=== PATIENT | male | born 1980 | race Caucasian/White ===

== ENCOUNTER 2021-10-07 12:18 | Inpatient (IN) | payer OTHER ==
[2021-10-07] VITALS (34 sets, daily range): BP systolic 99–133; BP diastolic 55–92
[~2021-10-07] VITALS: Ht 188 cm; Wt 128.9 kg
[2021-10-07] MEDS ORDERED: REFRIGERATOR IV KEYS XX PRN (13:20)
[2021-10-07] MEDS: propofoL 1,000 MG in IV 1 EA IV SCH ×6 (14:15→23:00)
[2021-10-07] MEDS ORDERED: MIDAZOLAM INJ 2MG/2ML VIAL (J2250 PER 1MG) As Ordered ONE (14:19)
[2021-10-07] MEDS ORDERED: PROPOFOL 1,000 MG/100 ML VIAL As Ordered ONE (14:19)
[2021-10-07] MEDS ORDERED: VECURONIUM BROMIDE 10MG VIAL As Ordered ONE (14:29)
[2021-10-07] MEDS: MIDAZOLAM INJ 2MG/2ML VIAL (J2250 PER 1MG) IV PRN (14:30)
[2021-10-07] MEDS ORDERED: MORPHINE 4 MG/ML 1ML VIAL/SYRINGE (J2270) As Ordered ONE (14:38)
[2021-10-07] MEDS ORDERED: MIDAZOLAM INJ 2MG/2ML VIAL (J2250 PER 1MG) IV STA (14:38)
[2021-10-07] MEDS ORDERED: MIDAZOLAM 5MG/ML 1ML VIAL (J2250 PER 1MG) As Ordered ONE (14:39)
[2021-10-07] MEDS ORDERED: MORPHINE 4 MG/ML 1ML VIAL/SYRINGE (J2270) IV ONE (14:40)
[2021-10-07] MEDS: fentaNYL CITRATE 1,000 MCG in NS 80 ML IV SCH (15:00)
[2021-10-07] MEDS: MIDAZOLAM HCL 100 MG in D5W 80 ML IV SCH (15:00)
[2021-10-07] MEDS ORDERED: VECURONIUM BROMIDE 10MG VIAL IV STA (15:07)
[2021-10-07 15:22] LABS: ABG BASE EXCESS -4.9 (-2.0-2.0); ABG HCO3 21.2 MEQ/L (22.0-26.0); ABG O2 SATURATION 93.5 % (95.0-99.0); ABG PARTIAL PRESSURE CO2 43.4 mmHg (35.0-45.0); ABG PARTIAL PRESSURE O2 76.9 mmHg (75.0-100.0); ABG STANDARD HCO3 20.3 MEQ/L (22.0-26.0); ABG TOTAL CO2 22.5 MEQ/L (22.0-29.0); ABG pH (ARTERIAL) 7.307 UNITS (7.350-7.450)
[2021-10-07] MEDS ORDERED: HEPARIN SOD (PORCINE) 5000UNITS/ML 1ML VIAL/SYRINGE IV ONE (15:30)
[2021-10-07] MEDS ORDERED: HEPARIN DRIP 25,000 UNITS in IV 1 EA IV SCH (15:30)
[2021-10-07 15:35] LABS: HEMATOCRIT 36.8 % (42.0-52.0); HEMOGLOBIN 12.6 g/dl (13.5-17.5); MEAN CORPUSCULAR HEMOGLOBIN 29.6 pg (27.0-33.0); MEAN CORPUSCULAR HGB CONC 34.2 g/dl (32.0-36.5); MEAN CORPUSCULAR VOLUME 86.4 fl (80.0-96.0); PLATELET COUNT, AUTOMATED 237 10^3/uL (150-450); RED BLOOD COUNT 4.26 10^6/uL (4.30-6.10); WHITE BLOOD COUNT 10.2 10^3/uL (4.0-10.0)
[2021-10-07] MEDS ORDERED: LEVO150T7 PO (15:37)
[2021-10-07] MEDS ORDERED: NEUR300C PO (15:37)
[2021-10-07] MEDS ORDERED: METF-723 PO (15:37)
[2021-10-07] MEDS ORDERED: OMEP40CA5 PO (15:37)
[2021-10-07] MEDS ORDERED: LOSA50TA28 PO (15:37)
[2021-10-07] MEDS ORDERED: ATOR80TA59 PO (15:37)
[2021-10-07] MEDS ORDERED: TIZA10TA PO (15:37)
[2021-10-07] MEDS ORDERED: FLUC150T PO (15:37)
[2021-10-07] MEDS ORDERED: MICO14CR TOP (15:37)
[2021-10-07] MEDS ORDERED: VASC1CAP2 PO (15:37)
[2021-10-07] MEDS ORDERED: SITA50TAB PO (15:37)
[2021-10-07] MEDS ORDERED: JARD1TAB3 PO (15:37)
[2021-10-07] MEDS ORDERED: FENO145T7 PO (15:37)
[2021-10-07] MEDS: IPRATROPIUM 0.5MG/ALBUTEROL 2.5MG INH SOL UD 3ML (DUONEB) NEB SCH ×2 (15:38→20:47)
[2021-10-07] MEDS ORDERED: [UNRECOGNIZED DRUG - CODE] IV (15:55)
[2021-10-07] MEDS ORDERED: LOVE0.8I SC (15:55)
[2021-10-07] MEDS ORDERED: [UNRECOGNIZED DRUG - CODE] INJ (15:55)
[2021-10-07] MEDS: PANTOPRAZOLE 40MG VIAL (C9113 PER 1) IV SCH (15:57)
[2021-10-07] MEDS: INSULIN REGULAR IN 0.9 % NACL 100 UNIT in IV 1 EA IV SCH ×2 (15:58)
[2021-10-07 16:03] LABS: BILIRUBIN,TOTAL 0.5 MG/DL (0.2-1.0); CALCIUM LEVEL 8.3 MG/DL (8.5-10.1); CREATININE FOR GFR 1.48 MG/DL (0.70-1.30); GLOMERULAR FILTRATION RATE 55.8 (>60); PHOSPHORUS LEVEL 3.9 MG/DL (2.5-4.9); POTASSIUM SERUM 4.7 MEQ/L (3.5-5.1); TOTAL PROTEIN 7.1 GM/DL (6.4-8.2)
[2021-10-07 16:04] LABS: MAGNESIUM LEVEL 2.1 MG/DL (1.8-2.4)
[2021-10-07] MEDS ORDERED: [UNRECOGNIZED DRUG - CODE] IV (16:07)
[2021-10-07] MEDS ORDERED: CEFT1INJ5 IV (16:07)
[2021-10-07] MEDS ORDERED: DEXA10SY IVP (16:07)
[2021-10-07] MEDS ORDERED: INSUHUMDS SC (16:10)
[2021-10-07] MEDS ORDERED: PATIENT COMMENT (16:11)
[2021-10-07] MEDS ORDERED: HOME MED LIST COMPLETE! XX SCH (16:15)
[2021-10-07] MEDS ORDERED: dexameTHASONE 20MG/5ML VIAL (J1100 PER 1MG) IV ONE (16:15)
[2021-10-07] MEDS: INSULIN IV RATE CHANGE DOCUMENTATION ML/HR XX SCH ×4 (17:00→23:06)
[2021-10-07] MEDS: CISATRACURIUM 200 MG in NS 480 ML IV SCH (17:05)
[2021-10-07] MEDS: BARICITINIB 2MG TABLET (OLUMIANT) FOR EUA PO SCH (17:06)
[2021-10-07] MEDS: HEPARIN DRIP 25,000 UNITS in IV 1 EA IV SCH (21:01)
[2021-10-07] MEDS: CHLORHEXIDINE GLUCONATE 0.12 % 15ML UDC (PERIDEX ORAL RINSE) MT SCH (21:19)
[2021-10-08] VITALS (46 sets, daily range): BP systolic 105–138; BP diastolic 55–81
[2021-10-08] MEDS: propofoL 1,000 MG in IV 1 EA IV SCH ×7 (01:05→22:58)
[2021-10-08] MEDS: INSULIN REGULAR IN 0.9 % NACL 100 UNIT in IV 1 EA IV SCH ×16 (01:10→21:54)
[2021-10-08] MEDS: INSULIN IV RATE CHANGE DOCUMENTATION ML/HR XX SCH ×5 (03:19→20:30)
[2021-10-08] MEDS: CISATRACURIUM 200 MG in NS 480 ML IV SCH ×2 (04:40→20:45)
[2021-10-08] MEDS: LEVOTHYROXINE 150MCG TABLET (0.15MG) NG SCH (04:58)
[2021-10-08] MEDS: dexameTHASONE 4 MG/ML 1ML VIAL (J1100 PER 1MG) IV SCH ×2 (04:59→18:12)
[2021-10-08] MEDS: fentaNYL CITRATE 1,000 MCG in NS 80 ML IV SCH ×3 (05:18→19:36)
[2021-10-08 05:20] LABS: ABG BASE EXCESS -1.7 (-2.0-2.0); ABG O2 SATURATION 99.2 % (95.0-99.0); ABG PARTIAL PRESSURE CO2 44.2 mmHg (35.0-45.0); ABG PARTIAL PRESSURE O2 210.4 mmHg (75.0-100.0); ABG STANDARD HCO3 23.1 MEQ/L (22.0-26.0); ABG TOTAL CO2 25.3 MEQ/L (22.0-29.0); ABG pH (ARTERIAL) 7.352 UNITS (7.350-7.450)
[2021-10-08 05:45] LABS: BASO % 0.1 % (0.0-1.0); EOS % 0.1 % (0.0-3.0); HEMATOCRIT 37.7 % (42.0-52.0); HEMOGLOBIN 12.6 g/dl (13.5-17.5); LYMPH # 1.4 10^3/uL (1.5-5.0); MEAN CORPUSCULAR HEMOGLOBIN 29.4 pg (27.0-33.0); MEAN CORPUSCULAR HGB CONC 33.4 g/dl (32.0-36.5); MEAN CORPUSCULAR VOLUME 88.1 fl (80.0-96.0); MONO # 0.3 10^3/uL (0.0-0.8); MONO % 3.5 % (2.0-8.0); NEUTROPHILS # 7.1 10^3/uL (1.5-8.5); NEUTROPHILS % 79.5 % (36.0-66.0); PLATELET COUNT, AUTOMATED 288 10^3/uL (150-450); RED BLOOD COUNT 4.28 10^6/uL (4.30-6.10); WHITE BLOOD COUNT 8.9 10^3/uL (4.0-10.0)
[2021-10-08 05:49] LABS: INR 1.09; PROTHROMBIN TIME 14.5 SECONDS (12.7-14.5)
[2021-10-08 05:51] LABS: PARTIAL THROMBOPLASTIN TIME 89.1 SECONDS (25.9-37.0)
[2021-10-08 06:05] LABS: ALT/SGPT 42 U/L (12-78); BILIRUBIN,DIRECT < 0.1 MG/DL (0.0-0.2); BILIRUBIN,TOTAL 0.5 MG/DL (0.2-1.0); BLOOD UREA NITROGEN 20 MG/DL (7-18); CALCIUM LEVEL 8.1 MG/DL (8.5-10.1); CARBON DIOXIDE LEVEL 26 MEQ/L (21-32); CHLORIDE LEVEL 108 MEQ/L (98-107); CREATININE FOR GFR 1.26 MG/DL (0.70-1.30); GLOMERULAR FILTRATION RATE > 60.0 (>60); GLUCOSE, FASTING 196 MG/DL (70-100); POTASSIUM SERUM 4.2 MEQ/L (3.5-5.1); SODIUM LEVEL 144 MEQ/L (136-145); TOTAL PROTEIN 6.6 GM/DL (6.4-8.2)
[2021-10-08] MEDS: IPRATROPIUM 0.5MG/ALBUTEROL 2.5MG INH SOL UD 3ML (DUONEB) NEB SCH ×4 (08:12→20:51)
[2021-10-08] MEDS: CHLORHEXIDINE GLUCONATE 0.12 % 15ML UDC (PERIDEX ORAL RINSE) MT SCH ×2 (09:11→21:08)
[2021-10-08] MEDS: REMDESIVIR 100 MG in NS 250 ML IV SCH (09:12)
[2021-10-08] MEDS: BARICITINIB 2MG TABLET (OLUMIANT) FOR EUA PO SCH (09:12)
[2021-10-08] MEDS: PANTOPRAZOLE 40MG VIAL (C9113 PER 1) IV SCH (09:12)
[2021-10-08] MEDS: SODIUM CHLORIDE 0.9% INJ 10 ML SYR IV SCH (09:13)
[2021-10-08] MEDS: MIDAZOLAM HCL 100 MG in D5W 80 ML IV SCH (11:15)
[2021-10-08] MEDS: HEPARIN DRIP 25,000 UNITS in IV 1 EA IV SCH (13:40)
[2021-10-08] MEDS: MIDAZOLAM INJ 2MG/2ML VIAL (J2250 PER 1MG) IV PRN (17:34)
[2021-10-09] VITALS (44 sets, daily range): BP systolic 111–171; BP diastolic 56–103
[2021-10-09] MEDS: propofoL 1,000 MG in IV 1 EA IV SCH ×7 (01:00→23:07)
[2021-10-09] MEDS ORDERED: PROPOFOL 1,000 MG/100 ML VIAL As Ordered ONE ×2 (01:07→02:57)
[2021-10-09] MEDS ORDERED: INSULIN REGULAR 100UNITS IN 0.9% SODIUM CHLORIDE 100ML IVBAG As Ordered ONE (01:13)
[2021-10-09 05:02] LABS: BASO % 0.1 % (0.0-1.0); HEMOGLOBIN 11.8 g/dl (13.5-17.5); LYMPH # 1.2 10^3/uL (1.5-5.0); LYMPH % 12.2 % (24.0-44.0); MEAN CORPUSCULAR HEMOGLOBIN 29.2 pg (27.0-33.0); MEAN CORPUSCULAR HGB CONC 32.8 g/dl (32.0-36.5); MEAN CORPUSCULAR VOLUME 89.1 fl (80.0-96.0); MONO # 0.7 10^3/uL (0.0-0.8); MONO % 7.1 % (2.0-8.0); NEUTROPHILS # 7.6 10^3/uL (1.5-8.5); NEUTROPHILS % 79.5 % (36.0-66.0); PLATELET COUNT, AUTOMATED 366 10^3/uL (150-450); RED BLOOD COUNT 4.04 10^6/uL (4.30-6.10); WHITE BLOOD COUNT 9.6 10^3/uL (4.0-10.0)
[2021-10-09 05:14] LABS: INR 0.99; PROTHROMBIN TIME 13.5 SECONDS (12.7-14.5)
[2021-10-09 05:15] LABS: PARTIAL THROMBOPLASTIN TIME 48.8 SECONDS (25.9-37.0)
[2021-10-09] MEDS ORDERED: NS 500 ML IV ONE (05:35)
[2021-10-09 05:47] LABS: BLOOD UREA NITROGEN 21 MG/DL (7-18); CARBON DIOXIDE LEVEL 28 MEQ/L (21-32); CHLORIDE LEVEL 115 MEQ/L (98-107); CREATININE FOR GFR 1.26 MG/DL (0.70-1.30); GLOMERULAR FILTRATION RATE > 60.0 (>60); GLUCOSE, FASTING 125 MG/DL (70-100); POTASSIUM SERUM 4.4 MEQ/L (3.5-5.1); SODIUM LEVEL 148 MEQ/L (136-145)
[2021-10-09 05:48] LABS: ALBUMIN 1.8 GM/DL (3.2-5.2); ALT/SGPT 43 U/L (12-78); BILIRUBIN,DIRECT 0.2 MG/DL (0.0-0.2); BILIRUBIN,TOTAL 0.4 MG/DL (0.2-1.0); CALCIUM LEVEL 7.6 MG/DL (8.5-10.1); FERRITIN 2294 NG/ML (26-388); LDH LACTATE DEHYDROGENASE 536 U/L (87-241); NT-PRO BNP 35 PG/ML (<125); TOTAL PROTEIN 5.9 GM/DL (6.4-8.2)
[2021-10-09] MEDS: LEVOTHYROXINE 150MCG TABLET (0.15MG) NG SCH (06:00)
[2021-10-09] MEDS: dexameTHASONE 4 MG/ML 1ML VIAL (J1100 PER 1MG) IV SCH ×2 (06:00→18:03)
[2021-10-09 06:19] LABS: ABG BASE EXCESS -1.9 (-2.0-2.0); ABG HCO3 24.2 MEQ/L (22.0-26.0); ABG O2 SATURATION 98.8 % (95.0-99.0); ABG PARTIAL PRESSURE CO2 46.7 mmHg (35.0-45.0); ABG STANDARD HCO3 22.9 MEQ/L (22.0-26.0); ABG TOTAL CO2 25.7 MEQ/L (22.0-29.0); ABG pH (ARTERIAL) 7.333 UNITS (7.350-7.450)
[2021-10-09] MEDS: HEPARIN SOD (PORCINE) 5000UNITS/ML 1ML VIAL/SYRINGE IV PRN (06:19)
[2021-10-09] MEDS: HEPARIN DRIP 25,000 UNITS in IV 1 EA IV SCH ×2 (06:19→19:30)
[2021-10-09] MEDS: IPRATROPIUM 0.5MG/ALBUTEROL 2.5MG INH SOL UD 3ML (DUONEB) NEB SCH ×4 (07:57→20:28)
[2021-10-09] MEDS: CISATRACURIUM 200 MG in NS 480 ML IV SCH (08:41)
[2021-10-09] MEDS: CHLORHEXIDINE GLUCONATE 0.12 % 15ML UDC (PERIDEX ORAL RINSE) MT SCH ×2 (09:23→21:06)
[2021-10-09] MEDS: BARICITINIB 2MG TABLET (OLUMIANT) FOR EUA PO SCH (09:24)
[2021-10-09] MEDS: REMDESIVIR 100 MG in NS 250 ML IV SCH (09:24)
[2021-10-09] MEDS: PANTOPRAZOLE 40MG VIAL (C9113 PER 1) IV SCH (09:24)
[2021-10-09] MEDS: fentaNYL CITRATE 1,000 MCG in NS 80 ML IV SCH ×2 (09:54→17:45)
[2021-10-09] MEDS: MIDAZOLAM HCL 100 MG in D5W 80 ML IV SCH (10:56)
[2021-10-09] MEDS: D5W/0.45% SODIUM CHLORIDE 1,000 ML IV SCH ×3 (10:57→18:04)
[2021-10-09] MEDS: SODIUM CHLORIDE 0.9% INJ 10 ML SYR IV SCH (10:57)
[2021-10-09] MEDS: INSULIN IV RATE CHANGE DOCUMENTATION ML/HR XX SCH ×5 (12:35→23:45)
[2021-10-09] MEDS: INSULIN REGULAR IN 0.9 % NACL 100 UNIT in IV 1 EA IV SCH ×4 (12:35→23:09)
[2021-10-09 15:25] LABS: BLOOD UREA NITROGEN 21 MG/DL (7-18); CALCIUM LEVEL 8.1 MG/DL (8.5-10.1); CARBON DIOXIDE LEVEL 27 MEQ/L (21-32); CHLORIDE LEVEL 113 MEQ/L (98-107); CREATININE FOR GFR 1.34 MG/DL (0.70-1.30); GLOMERULAR FILTRATION RATE > 60.0 (>60); GLUCOSE, FASTING 208 MG/DL (70-100); POTASSIUM SERUM 4.2 MEQ/L (3.5-5.1); SODIUM LEVEL 146 MEQ/L (136-145)
[2021-10-10] VITALS (28 sets, daily range): BP systolic 107–143; BP diastolic 62–80
[2021-10-10] MEDS: propofoL 1,000 MG in IV 1 EA IV SCH ×14 (00:49→22:45)
[2021-10-10] MEDS: INSULIN IV RATE CHANGE DOCUMENTATION ML/HR XX SCH ×4 (01:45→23:52)
[2021-10-10] MEDS: D5W/0.45% SODIUM CHLORIDE 1,000 ML IV SCH ×2 (03:56→14:02)
[2021-10-10] MEDS: INSULIN REGULAR IN 0.9 % NACL 100 UNIT in IV 1 EA IV SCH ×10 (04:07→22:31)
[2021-10-10 05:35] LABS: ABG BASE EXCESS -4.6 (-2.0-2.0); ABG O2 SATURATION 97.5 % (95.0-99.0); ABG PARTIAL PRESSURE CO2 40.6 mmHg (35.0-45.0); ABG PARTIAL PRESSURE O2 104.7 mmHg (75.0-100.0); ABG STANDARD HCO3 20.7 MEQ/L (22.0-26.0); ABG TOTAL CO2 22.2 MEQ/L (22.0-29.0); ABG pH (ARTERIAL) 7.331 UNITS (7.350-7.450)
[2021-10-10] MEDS: dexameTHASONE 4 MG/ML 1ML VIAL (J1100 PER 1MG) IV SCH ×2 (05:49→18:04)
[2021-10-10] MEDS: LEVOTHYROXINE 150MCG TABLET (0.15MG) NG SCH (05:50)
[2021-10-10 06:00] LABS: HEMATOCRIT 34.3 % (42.0-52.0); HEMOGLOBIN 11.2 g/dl (13.5-17.5); MEAN CORPUSCULAR HEMOGLOBIN 29.2 pg (27.0-33.0); MEAN CORPUSCULAR HGB CONC 32.7 g/dl (32.0-36.5); MEAN CORPUSCULAR VOLUME 89.6 fl (80.0-96.0); PLATELET COUNT, AUTOMATED 429 10^3/uL (150-450); RED BLOOD COUNT 3.83 10^6/uL (4.30-6.10); WHITE BLOOD COUNT 9.8 10^3/uL (4.0-10.0)
[2021-10-10 06:18] LABS: INR 1.02; PROTHROMBIN TIME 13.9 SECONDS (12.7-14.5)
[2021-10-10 06:26] LABS: BLOOD UREA NITROGEN 22 MG/DL (7-18); CALCIUM LEVEL 7.9 MG/DL (8.5-10.1); CARBON DIOXIDE LEVEL 27 MEQ/L (21-32); CHLORIDE LEVEL 113 MEQ/L (98-107); CREATININE FOR GFR 1.34 MG/DL (0.70-1.30); GLOMERULAR FILTRATION RATE > 60.0 (>60); GLUCOSE, FASTING 118 MG/DL (70-100); SODIUM LEVEL 145 MEQ/L (136-145)
[2021-10-10 06:42] LABS: BASOPHILS 1 % (0-1); LYMPHOCYTES 2 % (16-44); METAMYELOCYTES 1 % (0-0); MONOCYTES 3 % (0-5); NEUTROPHILS 85 % (28-66)
[2021-10-10 06:43] LABS: PLATELET ESTIMATE NORMAL (NORMAL)
[2021-10-10] MEDS: IPRATROPIUM 0.5MG/ALBUTEROL 2.5MG INH SOL UD 3ML (DUONEB) NEB SCH ×4 (07:38→19:27)
[2021-10-10] MEDS: MIDAZOLAM HCL 100 MG in D5W 80 ML IV SCH (07:58)
[2021-10-10] MEDS: fentaNYL CITRATE 1,000 MCG in NS 80 ML IV SCH ×2 (07:59→22:15)
[2021-10-10] MEDS: REMDESIVIR 100 MG in NS 250 ML IV SCH (09:06)
[2021-10-10] MEDS: PANTOPRAZOLE 40MG VIAL (C9113 PER 1) IV SCH (09:08)
[2021-10-10] MEDS: BARICITINIB 2MG TABLET (OLUMIANT) FOR EUA PO SCH (09:09)
[2021-10-10] MEDS: CHLORHEXIDINE GLUCONATE 0.12 % 15ML UDC (PERIDEX ORAL RINSE) MT SCH ×2 (09:09→20:15)
[2021-10-10] MEDS: HEPARIN DRIP 25,000 UNITS in IV 1 EA IV SCH ×2 (09:24→22:30)
[2021-10-10] MEDS: SODIUM CHLORIDE 0.9% INJ 10 ML SYR IV SCH (10:00)
[2021-10-10] MEDS: MIDAZOLAM INJ 2MG/2ML VIAL (J2250 PER 1MG) IV PRN ×8 (11:04→23:28)
[2021-10-11] VITALS (22 sets, daily range): BP systolic 102–137; BP diastolic 60–80
[2021-10-11] MEDS: D5W/0.45% SODIUM CHLORIDE 1,000 ML IV SCH ×3 (00:18→23:36)
[2021-10-11] MEDS: propofoL 1,000 MG in IV 1 EA IV SCH ×15 (00:18→23:28)
[2021-10-11] MEDS: INSULIN REGULAR IN 0.9 % NACL 100 UNIT in IV 1 EA IV SCH ×10 (01:02→22:23)
[2021-10-11] MEDS: ACETAMINOPHEN 325 MG/10.15 ML UDC GT PRN (01:16)
[2021-10-11] MEDS: INSULIN IV RATE CHANGE DOCUMENTATION ML/HR XX SCH ×9 (02:20→22:45)
[2021-10-11] MEDS: MIDAZOLAM INJ 2MG/2ML VIAL (J2250 PER 1MG) IV PRN ×2 (04:27→05:01)
[2021-10-11 04:37] LABS: HEMATOCRIT 34.1 % (42.0-52.0); MEAN CORPUSCULAR HEMOGLOBIN 29.3 pg (27.0-33.0); MEAN CORPUSCULAR HGB CONC 32.3 g/dl (32.0-36.5); MEAN CORPUSCULAR VOLUME 90.9 fl (80.0-96.0); PLATELET COUNT, AUTOMATED 441 10^3/uL (150-450); RED BLOOD COUNT 3.75 10^6/uL (4.30-6.10); WHITE BLOOD COUNT 12.9 10^3/uL (4.0-10.0)
[2021-10-11] MEDS: MIDAZOLAM HCL 100 MG in D5W 80 ML IV SCH ×3 (04:58→18:05)
[2021-10-11] MEDS: LEVOTHYROXINE 150MCG TABLET (0.15MG) NG SCH (05:01)
[2021-10-11 05:02] LABS: EOSINOPHILS 1 % (0-3); LYMPHOCYTES 13 % (16-44); MONOCYTES 2 % (0-5); MYELOCYTES 2 % (0-0); NEUTROPHILS 81 % (28-66)
[2021-10-11] MEDS: dexameTHASONE 4 MG/ML 1ML VIAL (J1100 PER 1MG) IV SCH ×2 (05:02→17:41)
[2021-10-11 05:04] LABS: PLATELET ESTIMATE INCREASED (NORMAL)
[2021-10-11 05:24] LABS: INR 1.03; PROTHROMBIN TIME 13.9 SECONDS (12.7-14.5)
[2021-10-11 05:25] LABS: PARTIAL THROMBOPLASTIN TIME 45.7 SECONDS (25.9-37.0)
[2021-10-11 05:32] LABS: ALBUMIN 1.9 GM/DL (3.2-5.2); ALT/SGPT 35 U/L (12-78); BILIRUBIN,DIRECT 0.2 MG/DL (0.0-0.2); BILIRUBIN,TOTAL 0.4 MG/DL (0.2-1.0); BLOOD UREA NITROGEN 23 MG/DL (7-18); CARBON DIOXIDE LEVEL 26 MEQ/L (21-32); CHLORIDE LEVEL 112 MEQ/L (98-107); CREATININE FOR GFR 1.26 MG/DL (0.70-1.30); FERRITIN 1229 NG/ML (26-388); GLOMERULAR FILTRATION RATE > 60.0 (>60); GLUCOSE, FASTING 169 MG/DL (70-100); LDH LACTATE DEHYDROGENASE 535 U/L (87-241); NT-PRO BNP 83 PG/ML (<125); POTASSIUM SERUM 4.2 MEQ/L (3.5-5.1); SODIUM LEVEL 146 MEQ/L (136-145); TOTAL PROTEIN 5.7 GM/DL (6.4-8.2)
[2021-10-11 05:39] LABS: ABG BASE EXCESS -3.6 (-2.0-2.0); ABG HCO3 22.4 MEQ/L (22.0-26.0); ABG O2 SATURATION 97.1 % (95.0-99.0); ABG PARTIAL PRESSURE CO2 44.4 mmHg (35.0-45.0); ABG PARTIAL PRESSURE O2 102.6 mmHg (75.0-100.0); ABG STANDARD HCO3 21.5 MEQ/L (22.0-26.0); ABG TOTAL CO2 23.8 MEQ/L (22.0-29.0); ABG pH (ARTERIAL) 7.321 UNITS (7.350-7.450)
[2021-10-11] MEDS: HEPARIN SOD (PORCINE) 5000UNITS/ML 1ML VIAL/SYRINGE IV PRN (05:46)
[2021-10-11] MEDS: HEPARIN DRIP 25,000 UNITS in IV 1 EA IV SCH ×2 (06:40→20:06)
[2021-10-11] MEDS: IPRATROPIUM 0.5MG/ALBUTEROL 2.5MG INH SOL UD 3ML (DUONEB) NEB SCH ×4 (08:15→18:16)
[2021-10-11] MEDS: CHLORHEXIDINE GLUCONATE 0.12 % 15ML UDC (PERIDEX ORAL RINSE) MT SCH ×2 (08:40→20:05)
[2021-10-11] MEDS: fentaNYL CITRATE 1,000 MCG in NS 80 ML IV SCH ×2 (08:40→18:03)
[2021-10-11] MEDS: PANTOPRAZOLE 40MG VIAL (C9113 PER 1) IV SCH (08:41)
[2021-10-11] MEDS: SODIUM CHLORIDE 0.9% INJ 10 ML SYR IV SCH (08:41)
[2021-10-11] MEDS: REMDESIVIR 100 MG in NS 250 ML IV SCH (08:41)
[2021-10-11] MEDS: BARICITINIB 2MG TABLET (OLUMIANT) FOR EUA PO SCH (08:41)
[2021-10-11] MEDS ORDERED: MIDAZOLAM HCL 100 MG in D5W 80 ML IV SCH (09:21)
[2021-10-12] VITALS (23 sets, daily range): BP systolic 107–170; BP diastolic 58–94
[2021-10-12] MEDS: propofoL 1,000 MG in IV 1 EA IV SCH ×16 (00:50→23:01)
[2021-10-12] MEDS: HEPARIN SOD (PORCINE) 5000UNITS/ML 1ML VIAL/SYRINGE IV PRN (02:02)
[2021-10-12] MEDS: INSULIN REGULAR IN 0.9 % NACL 100 UNIT in IV 1 EA IV SCH ×6 (02:30→17:19)
[2021-10-12] MEDS: fentaNYL CITRATE 1,000 MCG in NS 80 ML IV SCH ×2 (04:30→14:42)
[2021-10-12] MEDS: LEVOTHYROXINE 150MCG TABLET (0.15MG) NG SCH (05:07)
[2021-10-12 05:12] LABS: HEMATOCRIT 33.1 % (42.0-52.0); HEMOGLOBIN 10.5 g/dl (13.5-17.5); MEAN CORPUSCULAR HEMOGLOBIN 28.8 pg (27.0-33.0); MEAN CORPUSCULAR HGB CONC 31.7 g/dl (32.0-36.5); MEAN CORPUSCULAR VOLUME 90.9 fl (80.0-96.0); RED BLOOD COUNT 3.64 10^6/uL (4.30-6.10); WHITE BLOOD COUNT 15.5 10^3/uL (4.0-10.0)
[2021-10-12 05:13] LABS: PLATELET COUNT, AUTOMATED 432 10^3/uL (150-450)
[2021-10-12 05:23] LABS: INR 1.14; PROTHROMBIN TIME 15.1 SECONDS (12.7-14.5)
[2021-10-12] MEDS: dexameTHASONE 4 MG/ML 1ML VIAL (J1100 PER 1MG) IV SCH ×2 (05:27→17:58)
[2021-10-12 06:18] LABS: BLOOD UREA NITROGEN 17 MG/DL (7-18); CALCIUM LEVEL 7.7 MG/DL (8.5-10.1); CARBON DIOXIDE LEVEL 26 MEQ/L (21-32); CHLORIDE LEVEL 111 MEQ/L (98-107); GLOMERULAR FILTRATION RATE > 60.0 (>60); GLUCOSE, FASTING 104 MG/DL (70-100); POTASSIUM SERUM 4.1 MEQ/L (3.5-5.1); SODIUM LEVEL 144 MEQ/L (136-145)
[2021-10-12 06:20] LABS: ABG BASE EXCESS -0.1 (-2.0-2.0); ABG HCO3 25.1 MEQ/L (22.0-26.0); ABG O2 SATURATION 92.7 % (95.0-99.0); ABG PARTIAL PRESSURE CO2 43.2 mmHg (35.0-45.0); ABG PARTIAL PRESSURE O2 67.2 mmHg (75.0-100.0); ABG STANDARD HCO3 24.3 MEQ/L (22.0-26.0); ABG TOTAL CO2 26.4 MEQ/L (22.0-29.0); ABG pH (ARTERIAL) 7.382 UNITS (7.350-7.450)
[2021-10-12] MEDS: MIDAZOLAM INJ 2MG/2ML VIAL (J2250 PER 1MG) IV PRN ×2 (06:36→07:48)
[2021-10-12 06:51] LABS: LYMPHOCYTES 12 % (16-44); METAMYELOCYTES 6 % (0-0); MONOCYTES 4 % (0-5); MYELOCYTES 2 % (0-0); NEUTROPHILS 70 % (28-66)
[2021-10-12 06:54] LABS: BURR CELLS 1+; PLATELET CLUMPS SMALL AMT; PLATELET ESTIMATE INCREASED (NORMAL)
[2021-10-12] MEDS: IPRATROPIUM 0.5MG/ALBUTEROL 2.5MG INH SOL UD 3ML (DUONEB) NEB SCH ×4 (07:17→19:19)
[2021-10-12] MEDS: INSULIN IV RATE CHANGE DOCUMENTATION ML/HR XX SCH ×7 (08:00→22:04)
[2021-10-12] MEDS ORDERED: VECURONIUM BROMIDE 10MG VIAL IV STA (08:01)
[2021-10-12] MEDS ORDERED: VECURONIUM BROMIDE 10MG VIAL As Ordered ONE (08:05)
[2021-10-12] MEDS: MIDAZOLAM HCL 100 MG in D5W 80 ML IV SCH (09:54)
[2021-10-12] MEDS: PIPERACILLIN/TAZOBACTAM SOD 3.375 GM in D5W MINI-BAG PLUS 50 ML IV SCH ×3 (10:08→21:30)
[2021-10-12] MEDS: CHLORHEXIDINE GLUCONATE 0.12 % 15ML UDC (PERIDEX ORAL RINSE) MT SCH ×2 (10:27→20:03)
[2021-10-12] MEDS: BARICITINIB 2MG TABLET (OLUMIANT) FOR EUA PO SCH (10:28)
[2021-10-12] MEDS: PANTOPRAZOLE 40MG VIAL (C9113 PER 1) IV SCH (10:28)
[2021-10-12] MEDS: HEPARIN DRIP 25,000 UNITS in IV 1 EA IV SCH ×2 (10:44→23:41)
[2021-10-12] MEDS: CISATRACURIUM 200 MG in NS 480 ML IV SCH ×2 (10:47→19:36)
[2021-10-12] MEDS ORDERED: DEXTROSE 50% 50 ML SYRINGE IV PRN (11:50)
[2021-10-12] MEDS ORDERED: GLUCAGON INJ 1MG VIAL SC PRN (11:50)
[2021-10-12] MEDS ORDERED: GLUCOSE 4GM CHEW TABLET PO PRN (11:50)
[2021-10-13] VITALS (25 sets, daily range): BP systolic 95–136; BP diastolic 51–76
[2021-10-13] MEDS: INSULIN IV RATE CHANGE DOCUMENTATION ML/HR XX SCH ×9 (00:27→16:16)
[2021-10-13] MEDS: propofoL 1,000 MG in IV 1 EA IV SCH ×14 (00:28→23:35)
[2021-10-13] MEDS: fentaNYL CITRATE 1,000 MCG in NS 80 ML IV SCH ×3 (01:16→21:14)
[2021-10-13] MEDS: MIDAZOLAM HCL 100 MG in D5W 80 ML IV SCH ×2 (01:46→18:05)
[2021-10-13] MEDS: INSULIN REGULAR IN 0.9 % NACL 100 UNIT in IV 1 EA IV SCH ×10 (02:28→21:13)
[2021-10-13 04:44] LABS: HEMATOCRIT 36.3 % (42.0-52.0); HEMOGLOBIN 11.6 g/dl (13.5-17.5); MEAN CORPUSCULAR HEMOGLOBIN 29.3 pg (27.0-33.0); MEAN CORPUSCULAR VOLUME 91.7 fl (80.0-96.0); PLATELET COUNT, AUTOMATED 409 10^3/uL (150-450); RED BLOOD COUNT 3.96 10^6/uL (4.30-6.10)
[2021-10-13] MEDS: PIPERACILLIN/TAZOBACTAM SOD 3.375 GM in D5W MINI-BAG PLUS 50 ML IV SCH ×4 (04:48→21:18)
[2021-10-13 04:55] LABS: INR 1.17; PROTHROMBIN TIME 15.4 SECONDS (12.7-14.5)
[2021-10-13 05:06] LABS: LYMPHOCYTES 4 % (16-44); METAMYELOCYTES 4 % (0-0); MONOCYTES 1 % (0-5); MYELOCYTES 8 % (0-0); NEUTROPHILS 82 % (28-66); PLATELET ESTIMATE INCREASED (NORMAL)
[2021-10-13 05:09] LABS: POLYCHROMASIA 1+
[2021-10-13] MEDS: LEVOTHYROXINE 150MCG TABLET (0.15MG) NG SCH (05:16)
[2021-10-13] MEDS: dexameTHASONE 4 MG/ML 1ML VIAL (J1100 PER 1MG) IV SCH ×2 (05:17→17:27)
[2021-10-13] MEDS: CISATRACURIUM 200 MG in NS 480 ML IV SCH ×3 (05:27→20:54)
[2021-10-13 05:41] LABS: INR 1.2; PROTHROMBIN TIME 15.6 SECONDS (12.7-14.5)
[2021-10-13 05:43] LABS: PARTIAL THROMBOPLASTIN TIME 73.2 SECONDS (25.9-37.0)
[2021-10-13 05:49] LABS: ABG BASE EXCESS -0.2 (-2.0-2.0); ABG HCO3 26.3 MEQ/L (22.0-26.0); ABG O2 SATURATION 95.7 % (95.0-99.0); ABG PARTIAL PRESSURE CO2 51.9 mmHg (35.0-45.0); ABG PARTIAL PRESSURE O2 87.5 mmHg (75.0-100.0); ABG STANDARD HCO3 24.3 MEQ/L (22.0-26.0); ABG TOTAL CO2 27.9 MEQ/L (22.0-29.0); ABG pH (ARTERIAL) 7.323 UNITS (7.350-7.450)
[2021-10-13 05:57] LABS: ALBUMIN 1.8 GM/DL (3.2-5.2); ALT/SGPT 36 U/L (12-78); BILIRUBIN,DIRECT 0.4 MG/DL (0.0-0.2); BILIRUBIN,TOTAL 0.6 MG/DL (0.2-1.0); BLOOD UREA NITROGEN 23 MG/DL (7-18); CALCIUM LEVEL 7.8 MG/DL (8.5-10.1); CARBON DIOXIDE LEVEL 27 MEQ/L (21-32); CHLORIDE LEVEL 109 MEQ/L (98-107); CREATININE FOR GFR 1.21 MG/DL (0.70-1.30); FERRITIN 1036 NG/ML (26-388); GLOMERULAR FILTRATION RATE > 60.0 (>60); GLUCOSE, FASTING 219 MG/DL (70-100); LDH LACTATE DEHYDROGENASE 562 U/L (87-241); NT-PRO BNP 139 PG/ML (<125); POTASSIUM SERUM 4.8 MEQ/L (3.5-5.1); SODIUM LEVEL 144 MEQ/L (136-145); TOTAL PROTEIN 5.9 GM/DL (6.4-8.2)
[2021-10-13] MEDS ORDERED: BISACODYL 10 MG SUPP PR PRN (08:25)
[2021-10-13] MEDS: IPRATROPIUM 0.5MG/ALBUTEROL 2.5MG INH SOL UD 3ML (DUONEB) NEB SCH ×4 (08:32→21:25)
[2021-10-13] MEDS: CHLORHEXIDINE GLUCONATE 0.12 % 15ML UDC (PERIDEX ORAL RINSE) MT SCH ×2 (09:23→21:18)
[2021-10-13] MEDS: BARICITINIB 2MG TABLET (OLUMIANT) FOR EUA PO SCH (09:24)
[2021-10-13] MEDS: PANTOPRAZOLE 40MG VIAL (C9113 PER 1) IV SCH (09:24)
[2021-10-13] MEDS: HEPARIN DRIP 25,000 UNITS in IV 1 EA IV SCH (12:45)
[2021-10-13] MEDS ORDERED: NS 500 ML IV ONE (17:05)
[2021-10-14] VITALS (21 sets, daily range): BP systolic 103–144; BP diastolic 55–73
[2021-10-14] MEDS: propofoL 1,000 MG in IV 1 EA IV SCH ×17 (00:53→23:38)
[2021-10-14] MEDS: INSULIN REGULAR IN 0.9 % NACL 100 UNIT in IV 1 EA IV SCH ×8 (00:56→20:52)
[2021-10-14] MEDS: HEPARIN DRIP 25,000 UNITS in IV 1 EA IV SCH ×2 (01:35→13:44)
[2021-10-14] MEDS: CISATRACURIUM 200 MG in NS 480 ML IV SCH ×5 (01:48→22:11)
[2021-10-14] MEDS: PIPERACILLIN/TAZOBACTAM SOD 3.375 GM in D5W MINI-BAG PLUS 50 ML IV SCH ×4 (03:54→20:47)
[2021-10-14 05:51] LABS: HEMATOCRIT 31.4 % (42.0-52.0); HEMOGLOBIN 9.8 g/dl (13.5-17.5); MEAN CORPUSCULAR HEMOGLOBIN 29.3 pg (27.0-33.0); MEAN CORPUSCULAR HGB CONC 31.2 g/dl (32.0-36.5); PLATELET COUNT, AUTOMATED 412 10^3/uL (150-450); RED BLOOD COUNT 3.34 10^6/uL (4.30-6.10); WHITE BLOOD COUNT 17.8 10^3/uL (4.0-10.0)
[2021-10-14 06:04] LABS: INR 1.16; PROTHROMBIN TIME 15.3 SECONDS (12.7-14.5)
[2021-10-14 06:06] LABS: PARTIAL THROMBOPLASTIN TIME 87.2 SECONDS (25.9-37.0)
[2021-10-14 06:19] LABS: BLOOD UREA NITROGEN 17 MG/DL (7-18); CALCIUM LEVEL 9.3 MG/DL (8.5-10.1); CARBON DIOXIDE LEVEL 24 MEQ/L (21-32); CHLORIDE LEVEL 109 MEQ/L (98-107); CREATININE FOR GFR 1.19 MG/DL (0.70-1.30); GLOMERULAR FILTRATION RATE > 60.0 (>60); GLUCOSE, FASTING 89 MG/DL (70-100); POTASSIUM SERUM 4.5 MEQ/L (3.5-5.1); SODIUM LEVEL 144 MEQ/L (136-145)
[2021-10-14 06:21] LABS: ANISOCYTOSIS 1+; EOSINOPHILS 4 % (0-3); LYMPHOCYTES 19 % (16-44); METAMYELOCYTES 8 % (0-0); MONOCYTES 5 % (0-5); MYELOCYTES 3 % (0-0); NEUTROPHILS 54 % (28-66)
[2021-10-14 06:22] LABS: PLATELET ESTIMATE NORMAL (NORMAL)
[2021-10-14] MEDS: dexameTHASONE 4 MG/ML 1ML VIAL (J1100 PER 1MG) IV SCH ×2 (06:41→18:12)
[2021-10-14] MEDS: LEVOTHYROXINE 150MCG TABLET (0.15MG) NG SCH (06:41)
[2021-10-14 06:47] LABS: ABG BASE EXCESS 0.2 (-2.0-2.0); ABG HCO3 27.2 MEQ/L (22.0-26.0); ABG O2 SATURATION 92.6 % (95.0-99.0); ABG PARTIAL PRESSURE CO2 56.3 mmHg (35.0-45.0); ABG PARTIAL PRESSURE O2 71.8 mmHg (75.0-100.0); ABG STANDARD HCO3 24.6 MEQ/L (22.0-26.0); ABG TOTAL CO2 28.9 MEQ/L (22.0-29.0); ABG pH (ARTERIAL) 7.302 UNITS (7.350-7.450)
[2021-10-14] MEDS: fentaNYL CITRATE 1,000 MCG in NS 80 ML IV SCH (07:22)
[2021-10-14] MEDS: IPRATROPIUM 0.5MG/ALBUTEROL 2.5MG INH SOL UD 3ML (DUONEB) NEB SCH ×4 (07:47→20:39)
[2021-10-14] MEDS: PANTOPRAZOLE 40MG VIAL (C9113 PER 1) IV SCH (08:09)
[2021-10-14] MEDS: CHLORHEXIDINE GLUCONATE 0.12 % 15ML UDC (PERIDEX ORAL RINSE) MT SCH ×2 (08:09→20:47)
[2021-10-14] MEDS: BARICITINIB 2MG TABLET (OLUMIANT) FOR EUA PO SCH (08:10)
[2021-10-14] MEDS: MIDAZOLAM HCL 100 MG in D5W 80 ML IV SCH (10:30)
[2021-10-14] MEDS ORDERED: FUROSEMIDE 20MG/2ML VIAL (J1940) IV ONE (11:00)
[2021-10-14] MEDS: INSULIN IV RATE CHANGE DOCUMENTATION ML/HR XX SCH ×3 (14:34→23:31)
[2021-10-14] MEDS: FUROSEMIDE 20MG/2ML VIAL (J1940) IV SCH (20:46)
[2021-10-15] VITALS (23 sets, daily range): BP systolic 108–160; BP diastolic 55–87
[2021-10-15] MEDS: propofoL 1,000 MG in IV 1 EA IV SCH ×16 (01:02→23:25)
[2021-10-15] MEDS: fentaNYL CITRATE 1,000 MCG in NS 80 ML IV SCH ×4 (01:16→21:32)
[2021-10-15] MEDS: INSULIN IV RATE CHANGE DOCUMENTATION ML/HR XX SCH ×7 (02:01→23:07)
[2021-10-15] MEDS: INSULIN REGULAR IN 0.9 % NACL 100 UNIT in IV 1 EA IV SCH ×6 (03:04→21:32)
[2021-10-15] MEDS: CISATRACURIUM 200 MG in NS 480 ML IV SCH ×4 (03:06→23:27)
[2021-10-15] MEDS: MIDAZOLAM HCL 100 MG in D5W 80 ML IV SCH ×2 (03:18→19:59)
[2021-10-15] MEDS: HEPARIN DRIP 25,000 UNITS in IV 1 EA IV SCH ×2 (03:30→14:11)
[2021-10-15] MEDS: PIPERACILLIN/TAZOBACTAM SOD 3.375 GM in D5W MINI-BAG PLUS 50 ML IV SCH ×4 (04:02→23:09)
[2021-10-15] MEDS: dexameTHASONE 4 MG/ML 1ML VIAL (J1100 PER 1MG) IV SCH ×2 (05:24→17:00)
[2021-10-15] MEDS: LEVOTHYROXINE 150MCG TABLET (0.15MG) NG SCH (05:25)
[2021-10-15 06:01] LABS: INR 1.11; PROTHROMBIN TIME 14.7 SECONDS (12.7-14.5)
[2021-10-15 06:04] LABS: PARTIAL THROMBOPLASTIN TIME 89.1 SECONDS (25.9-37.0)
[2021-10-15 06:26] LABS: ABG HCO3 28.3 MEQ/L (22.0-26.0); ABG O2 SATURATION 89.7 % (95.0-99.0); ABG PARTIAL PRESSURE O2 68.2 mmHg (75.0-100.0); ABG STANDARD HCO3 24.4 MEQ/L (22.0-26.0); ABG TOTAL CO2 30.3 MEQ/L (22.0-29.0); ABG pH (ARTERIAL) 7.255 UNITS (7.350-7.450)
[2021-10-15 06:34] LABS: ABG PARTIAL PRESSURE CO2 65.3 mmHg (35.0-45.0)
[2021-10-15] MEDS ORDERED: ACETYLCYSTEINE 20% 4 ML VIAL (200MG/ML) INH ONE (07:30)
[2021-10-15] MEDS: IPRATROPIUM 0.5MG/ALBUTEROL 2.5MG INH SOL UD 3ML (DUONEB) NEB SCH ×4 (07:42→18:08)
[2021-10-15] MEDS: CHLORHEXIDINE GLUCONATE 0.12 % 15ML UDC (PERIDEX ORAL RINSE) MT SCH ×2 (08:10→21:09)
[2021-10-15] MEDS: FUROSEMIDE 20MG/2ML VIAL (J1940) IV SCH ×2 (08:11→16:54)
[2021-10-15] MEDS: BARICITINIB 2MG TABLET (OLUMIANT) FOR EUA PO SCH (08:11)
[2021-10-15] MEDS: PANTOPRAZOLE 40MG VIAL (C9113 PER 1) IV SCH (08:11)
[2021-10-15 09:29] LABS: HEMATOCRIT 33.7 % (42.0-52.0); HEMOGLOBIN 10.4 g/dl (13.5-17.5); MEAN CORPUSCULAR HEMOGLOBIN 29.1 pg (27.0-33.0); MEAN CORPUSCULAR HGB CONC 30.9 g/dl (32.0-36.5); MEAN CORPUSCULAR VOLUME 94.4 fl (80.0-96.0); PLATELET COUNT, AUTOMATED 445 10^3/uL (150-450); RED BLOOD COUNT 3.57 10^6/uL (4.30-6.10); WHITE BLOOD COUNT 22.3 10^3/uL (4.0-10.0)
[2021-10-15 09:39] LABS: ALBUMIN 1.9 GM/DL (3.2-5.2); ALT/SGPT 50 U/L (12-78); BILIRUBIN,TOTAL 0.5 MG/DL (0.2-1.0); BLOOD UREA NITROGEN 29 MG/DL (7-18); CARBON DIOXIDE LEVEL 31 MEQ/L (21-32); CHLORIDE LEVEL 107 MEQ/L (98-107); CHOLESTEROL LEVEL 207 MG/DL (< 200); CPK CREATINE PHOSPHOKINASE 291 U/L (39-308); CREATININE FOR GFR 1.31 MG/DL (0.70-1.30); GLOMERULAR FILTRATION RATE > 60.0 (>60); GLUCOSE, FASTING 115 MG/DL (70-100); LDH LACTATE DEHYDROGENASE 464 U/L (87-241); PHOSPHORUS LEVEL 5.5 MG/DL (2.5-4.9); POTASSIUM SERUM 4.9 MEQ/L (3.5-5.1); SODIUM LEVEL 144 MEQ/L (136-145); TOTAL PROTEIN 7.7 GM/DL (6.4-8.2); TRIGLYCERIDES LEVEL 392 MG/DL (<150)
[2021-10-15 09:58] LABS: ATYPICAL LYMPH 9 % (0-5); EOSINOPHILS 1 % (0-3); LYMPHOCYTES 10 % (16-44); METAMYELOCYTES 1 % (0-0); MONOCYTES 9 % (0-5); MYELOCYTES 7 % (0-0); NEUTROPHILS 63 % (28-66)
[2021-10-15 09:59] LABS: ANISOCYTOSIS 1+; PLATELET ESTIMATE INCREASED (NORMAL); POLYCHROMASIA 1+
[2021-10-15] MEDS: ACETAMINOPHEN 325 MG/10.15 ML UDC GT PRN (21:59)
[2021-10-16] VITALS (24 sets, daily range): BP systolic 101–159; BP diastolic 54–85
[2021-10-16] MEDS: propofoL 1,000 MG in IV 1 EA IV SCH ×16 (00:49→22:48)
[2021-10-16] MEDS: INSULIN IV RATE CHANGE DOCUMENTATION ML/HR XX SCH ×7 (01:08→20:22)
[2021-10-16] MEDS: HEPARIN DRIP 25,000 UNITS in IV 1 EA IV SCH ×2 (03:04→15:19)
[2021-10-16] MEDS: PIPERACILLIN/TAZOBACTAM SOD 3.375 GM in D5W MINI-BAG PLUS 50 ML IV SCH ×4 (03:40→21:24)
[2021-10-16] MEDS: CISATRACURIUM 200 MG in NS 480 ML IV SCH ×4 (04:38→20:18)
[2021-10-16] MEDS: dexameTHASONE 4 MG/ML 1ML VIAL (J1100 PER 1MG) IV SCH ×2 (06:20→17:07)
[2021-10-16] MEDS: LEVOTHYROXINE 150MCG TABLET (0.15MG) NG SCH (06:20)
[2021-10-16 06:36] LABS: HEMOGLOBIN 8.8 g/dl (13.5-17.5); MEAN CORPUSCULAR HEMOGLOBIN 28.8 pg (27.0-33.0); MEAN CORPUSCULAR HGB CONC 30.3 g/dl (32.0-36.5); MEAN CORPUSCULAR VOLUME 94.8 fl (80.0-96.0); PLATELET COUNT, AUTOMATED 371 10^3/uL (150-450); RED BLOOD COUNT 3.06 10^6/uL (4.30-6.10); WHITE BLOOD COUNT 18.8 10^3/uL (4.0-10.0)
[2021-10-16] MEDS: fentaNYL CITRATE 1,000 MCG in NS 80 ML IV SCH (07:38)
[2021-10-16] MEDS: IPRATROPIUM 0.5MG/ALBUTEROL 2.5MG INH SOL UD 3ML (DUONEB) NEB SCH ×4 (07:51→19:24)
[2021-10-16 08:21] LABS: ANISOCYTOSIS 1+; EOSINOPHILS 6 % (0-3); LYMPHOCYTES 13 % (16-44); MONOCYTES 3 % (0-5); MYELOCYTES 1 % (0-0); NEUTROPHILS 59 % (28-66); PLATELET ESTIMATE NORMAL (NORMAL)
[2021-10-16 08:22] LABS: HYPOCHROMASIA 1+
[2021-10-16] MEDS: INSULIN REGULAR IN 0.9 % NACL 100 UNIT in IV 1 EA IV SCH ×4 (08:28→17:12)
[2021-10-16 08:30] LABS: ALBUMIN 1.9 GM/DL (3.2-5.2); ALT/SGPT 35 U/L (12-78); BILIRUBIN,TOTAL 0.5 MG/DL (0.2-1.0); BLOOD UREA NITROGEN 34 MG/DL (7-18); CALCIUM LEVEL 8.3 MG/DL (8.5-10.1); CARBON DIOXIDE LEVEL 28 MEQ/L (21-32); CHLORIDE LEVEL 104 MEQ/L (98-107); CHOLESTEROL LEVEL 211 MG/DL (< 200); CPK CREATINE PHOSPHOKINASE 203 U/L (39-308); CREATININE FOR GFR 1.31 MG/DL (0.70-1.30); GLOMERULAR FILTRATION RATE > 60.0 (>60); GLUCOSE, FASTING 115 MG/DL (70-100); LDH LACTATE DEHYDROGENASE 498 U/L (87-241); PHOSPHORUS LEVEL 4.9 MG/DL (2.5-4.9); POTASSIUM SERUM 4.8 MEQ/L (3.5-5.1); SODIUM LEVEL 140 MEQ/L (136-145); TOTAL PROTEIN 6.2 GM/DL (6.4-8.2); TRIGLYCERIDES LEVEL 438 MG/DL (<150)
[2021-10-16] MEDS: PANTOPRAZOLE 40MG VIAL (C9113 PER 1) IV SCH (08:31)
[2021-10-16] MEDS: CHLORHEXIDINE GLUCONATE 0.12 % 15ML UDC (PERIDEX ORAL RINSE) MT SCH ×2 (08:31→20:19)
[2021-10-16] MEDS: FUROSEMIDE 20MG/2ML VIAL (J1940) IV SCH (08:31)
[2021-10-16] MEDS: BARICITINIB 2MG TABLET (OLUMIANT) FOR EUA PO SCH (08:32)
[2021-10-16 08:56] LABS: ABG BASE EXCESS 2.2 (-2.0-2.0); ABG HCO3 29.9 MEQ/L (22.0-26.0); ABG O2 SATURATION 86.6 % (95.0-99.0); ABG PARTIAL PRESSURE O2 57.8 mmHg (75.0-100.0); ABG STANDARD HCO3 26.2 MEQ/L (22.0-26.0); ABG TOTAL CO2 31.9 MEQ/L (22.0-29.0); ABG pH (ARTERIAL) 7.291 UNITS (7.350-7.450)
[2021-10-16 09:00] LABS: ABG PARTIAL PRESSURE CO2 63.5 mmHg (35.0-45.0)
[2021-10-16] MEDS ORDERED: VANCOMYCIN HCL 1,000 MG, VIAL MATE ADAPTER 1 EACH in NS 250 ML IV SCH (09:15)
[2021-10-16] MEDS ORDERED: VANCOMYCIN HCL 1,000 MG, VIAL MATE ADAPTER 1 EACH in NS 250 ML IV ONE ×2 (11:00→12:00)
[2021-10-16] MEDS: MIDAZOLAM HCL 100 MG in D5W 80 ML IV SCH (12:44)
[2021-10-16] MEDS ORDERED: FUROSEMIDE 40MG/4ML VIAL (J1940) IV SCH (17:00)
[2021-10-16] MEDS: VANCOMYCIN HCL 1,000 MG, VIAL MATE ADAPTER 1 EACH in NS 250 ML IV SCH (18:22)
[2021-10-17] VITALS (24 sets, daily range): BP systolic 104–143; BP diastolic 57–84
[2021-10-17] MEDS: CISATRACURIUM 200 MG in NS 480 ML IV SCH ×4 (00:18→20:30)
[2021-10-17] MEDS: INSULIN REGULAR IN 0.9 % NACL 100 UNIT in IV 1 EA IV SCH ×4 (01:35→14:04)
[2021-10-17] MEDS: propofoL 1,000 MG in IV 1 EA IV SCH ×14 (01:36→23:57)
[2021-10-17] MEDS: VANCOMYCIN HCL 1,000 MG, VIAL MATE ADAPTER 1 EACH in NS 250 ML IV SCH (03:11)
[2021-10-17] MEDS: INSULIN IV RATE CHANGE DOCUMENTATION ML/HR XX SCH ×7 (03:27→22:33)
[2021-10-17] MEDS: PIPERACILLIN/TAZOBACTAM SOD 3.375 GM in D5W MINI-BAG PLUS 50 ML IV SCH ×4 (03:39→23:02)
[2021-10-17] MEDS: fentaNYL CITRATE 1,000 MCG in NS 80 ML IV SCH ×2 (04:08→15:38)
[2021-10-17] MEDS: HEPARIN DRIP 25,000 UNITS in IV 1 EA IV SCH ×2 (04:17→15:20)
[2021-10-17 05:55] LABS: ABG HCO3 27.3 MEQ/L (22.0-26.0); ABG O2 SATURATION 91.9 % (95.0-99.0); ABG PARTIAL PRESSURE CO2 51.8 mmHg (35.0-45.0); ABG PARTIAL PRESSURE O2 69.2 mmHg (75.0-100.0); ABG STANDARD HCO3 25.3 MEQ/L (22.0-26.0); ABG TOTAL CO2 28.8 MEQ/L (22.0-29.0); ABG pH (ARTERIAL) 7.339 UNITS (7.350-7.450)
[2021-10-17] MEDS: MIDAZOLAM HCL 100 MG in D5W 80 ML IV SCH (06:10)
[2021-10-17] MEDS: dexameTHASONE 4 MG/ML 1ML VIAL (J1100 PER 1MG) IV SCH ×2 (06:14→17:17)
[2021-10-17] MEDS: LEVOTHYROXINE 150MCG TABLET (0.15MG) NG SCH (06:15)
[2021-10-17 06:50] LABS: HEMATOCRIT 28.6 % (42.0-52.0); HEMOGLOBIN 8.8 g/dl (13.5-17.5); MEAN CORPUSCULAR HGB CONC 30.8 g/dl (32.0-36.5); MEAN CORPUSCULAR VOLUME 94.4 fl (80.0-96.0); PLATELET COUNT, AUTOMATED 384 10^3/uL (150-450); RED BLOOD COUNT 3.03 10^6/uL (4.30-6.10); WHITE BLOOD COUNT 20.7 10^3/uL (4.0-10.0)
[2021-10-17 07:28] LABS: ALBUMIN 1.9 GM/DL (3.2-5.2); ALT/SGPT 43 U/L (12-78); BILIRUBIN,TOTAL 0.6 MG/DL (0.2-1.0); BLOOD UREA NITROGEN 35 MG/DL (7-18); CARBON DIOXIDE LEVEL 31 MEQ/L (21-32); CHLORIDE LEVEL 104 MEQ/L (98-107); CHOLESTEROL LEVEL 239 MG/DL (< 200); CPK CREATINE PHOSPHOKINASE 230 U/L (39-308); CREATININE FOR GFR 1.25 MG/DL (0.70-1.30); GLOMERULAR FILTRATION RATE > 60.0 (>60); GLUCOSE, FASTING 87 MG/DL (70-100); LDH LACTATE DEHYDROGENASE 399 U/L (87-241); POTASSIUM SERUM 4.9 MEQ/L (3.5-5.1); SODIUM LEVEL 142 MEQ/L (136-145); TOTAL PROTEIN 6.2 GM/DL (6.4-8.2); TRIGLYCERIDES LEVEL 397 MG/DL (<150)
[2021-10-17] MEDS: IPRATROPIUM 0.5MG/ALBUTEROL 2.5MG INH SOL UD 3ML (DUONEB) NEB SCH ×4 (07:38→19:50)
[2021-10-17 07:43] LABS: ATYPICAL LYMPH 1 % (0-5); LYMPHOCYTES 9 % (16-44); METAMYELOCYTES 5 % (0-0); MONOCYTES 4 % (0-5); MYELOCYTES 4 % (0-0); NEUTROPHILS 72 % (28-66); PLATELET ESTIMATE NORMAL (NORMAL)
[2021-10-17 07:44] LABS: ANISOCYTOSIS 1+; SMUDGE CELLS 1+
[2021-10-17] MEDS: BARICITINIB 2MG TABLET (OLUMIANT) FOR EUA PO SCH (09:21)
[2021-10-17] MEDS: PANTOPRAZOLE 40MG VIAL (C9113 PER 1) IV SCH (09:22)
[2021-10-17] MEDS: CHLORHEXIDINE GLUCONATE 0.12 % 15ML UDC (PERIDEX ORAL RINSE) MT SCH ×2 (09:22→20:11)
[2021-10-17] MEDS: FUROSEMIDE 40MG/4ML VIAL (J1940) IV SCH ×2 (09:23→17:17)
[2021-10-18] VITALS (20 sets, daily range): BP systolic 107–143; BP diastolic 57–80
[2021-10-18] MEDS: INSULIN IV RATE CHANGE DOCUMENTATION ML/HR XX SCH ×4 (00:38→23:49)
[2021-10-18] MEDS: MIDAZOLAM HCL 100 MG in D5W 80 ML IV SCH ×2 (00:55→17:27)
[2021-10-18] MEDS: fentaNYL CITRATE 1,000 MCG in NS 80 ML IV SCH ×4 (01:00→22:23)
[2021-10-18] MEDS: CISATRACURIUM 200 MG in NS 480 ML IV SCH ×5 (01:30→23:37)
[2021-10-18] MEDS: propofoL 1,000 MG in IV 1 EA IV SCH ×15 (01:31→23:37)
[2021-10-18] MEDS: HEPARIN DRIP 25,000 UNITS in IV 1 EA IV SCH ×3 (01:33→21:41)
[2021-10-18] MEDS: INSULIN REGULAR IN 0.9 % NACL 100 UNIT in IV 1 EA IV SCH ×6 (01:47→21:40)
[2021-10-18] MEDS: PIPERACILLIN/TAZOBACTAM SOD 3.375 GM in D5W MINI-BAG PLUS 50 ML IV SCH ×4 (04:29→21:43)
[2021-10-18 05:16] LABS: HEMATOCRIT 28.2 % (42.0-52.0); HEMOGLOBIN 8.8 g/dl (13.5-17.5); MEAN CORPUSCULAR HEMOGLOBIN 29.3 pg (27.0-33.0); MEAN CORPUSCULAR HGB CONC 31.2 g/dl (32.0-36.5); PLATELET COUNT, AUTOMATED 408 10^3/uL (150-450); WHITE BLOOD COUNT 19.4 10^3/uL (4.0-10.0)
[2021-10-18 05:25] LABS: INR 1.12; PROTHROMBIN TIME 14.8 SECONDS (12.7-14.5)
[2021-10-18 05:26] LABS: PARTIAL THROMBOPLASTIN TIME 83.5 SECONDS (25.9-37.0)
[2021-10-18 05:36] LABS: ANISOCYTOSIS 1+; EOSINOPHILS 1 % (0-3); LYMPHOCYTES 16 % (16-44); METAMYELOCYTES 1 % (0-0); MONOCYTES 7 % (0-5); MYELOCYTES 5 % (0-0); NEUTROPHILS 63 % (28-66); PLATELET ESTIMATE NORMAL (NORMAL); POIKILOCYTOSIS 1+; POLYCHROMASIA 1+
[2021-10-18 06:13] LABS: ABG BASE EXCESS 6.3 (-2.0-2.0); ABG HCO3 31.4 MEQ/L (22.0-26.0); ABG O2 SATURATION 99.3 % (95.0-99.0); ABG PARTIAL PRESSURE CO2 48.3 mmHg (35.0-45.0); ABG PARTIAL PRESSURE O2 199.6 mmHg (75.0-100.0); ABG STANDARD HCO3 30.2 MEQ/L (22.0-26.0); ABG TOTAL CO2 32.9 MEQ/L (22.0-29.0); ABG pH (ARTERIAL) 7.431 UNITS (7.350-7.450)
[2021-10-18] MEDS: LEVOTHYROXINE 150MCG TABLET (0.15MG) NG SCH (06:34)
[2021-10-18] MEDS: dexameTHASONE 4 MG/ML 1ML VIAL (J1100 PER 1MG) IV SCH (06:34)
[2021-10-18] MEDS: IPRATROPIUM 0.5MG/ALBUTEROL 2.5MG INH SOL UD 3ML (DUONEB) NEB SCH (07:20)
[2021-10-18 07:32] LABS: ALBUMIN 1.9 GM/DL (3.2-5.2); ALT/SGPT 41 U/L (12-78); BILIRUBIN,TOTAL 0.5 MG/DL (0.2-1.0); BLOOD UREA NITROGEN 32 MG/DL (7-18); CALCIUM LEVEL 8.4 MG/DL (8.5-10.1); CARBON DIOXIDE LEVEL 23 MEQ/L (21-32); CHLORIDE LEVEL 99 MEQ/L (98-107); CHOLESTEROL LEVEL 176 MG/DL (< 200); CPK CREATINE PHOSPHOKINASE 172 U/L (39-308); CREATININE FOR GFR 1.28 MG/DL (0.70-1.30); GLOMERULAR FILTRATION RATE > 60.0 (>60); GLUCOSE, FASTING 88 MG/DL (70-100); LDH LACTATE DEHYDROGENASE 348 U/L (87-241); PHOSPHORUS LEVEL 4.8 MG/DL (2.5-4.9); POTASSIUM SERUM 4.7 MEQ/L (3.5-5.1); SODIUM LEVEL 138 MEQ/L (136-145); TOTAL PROTEIN 7.3 GM/DL (6.4-8.2); TRIGLYCERIDES LEVEL 409 MG/DL (<150)
[2021-10-18] MEDS ORDERED: IPRATROPIUM 0.5MG/ALBUTEROL 2.5MG INH SOL UD 3ML (DUONEB) NEB PRN (08:50)
[2021-10-18] MEDS: PANTOPRAZOLE 40MG VIAL (C9113 PER 1) IV SCH (09:07)
[2021-10-18] MEDS: FUROSEMIDE 40MG/4ML VIAL (J1940) IV SCH ×2 (09:07→17:17)
[2021-10-18] MEDS: CHLORHEXIDINE GLUCONATE 0.12 % 15ML UDC (PERIDEX ORAL RINSE) MT SCH ×2 (09:08→20:39)
[2021-10-18] MEDS: BARICITINIB 2MG TABLET (OLUMIANT) FOR EUA PO SCH (09:08)
[2021-10-18 12:10] LABS: ABG BASE EXCESS 3.9 (-2.0-2.0); ABG FIO2 75; ABG MODE OF VENT AC; ABG O2 SATURATION 96.4 % (95.0-99.0); ABG PARTIAL PRESSURE CO2 61.2 mmHg (35.0-45.0); ABG PARTIAL PRESSURE O2 100.1 mmHg (75.0-100.0); ABG PATIENT RESP RATE 28 /MIN; ABG PEEP 18; ABG STANDARD HCO3 27.9 MEQ/L (22.0-26.0); ABG TIDAL VOLUME 410 cc; ABG TOTAL CO2 32.9 MEQ/L (22.0-29.0); ABG pH (ARTERIAL) 7.323 UNITS (7.350-7.450)
[2021-10-19] VITALS (24 sets, daily range): BP systolic 110–148; BP diastolic 63–86
[2021-10-19] MEDS: propofoL 1,000 MG in IV 1 EA IV SCH ×16 (01:13→23:27)
[2021-10-19] MEDS: CISATRACURIUM 200 MG in NS 480 ML IV SCH ×4 (04:36→20:10)
[2021-10-19] MEDS: PIPERACILLIN/TAZOBACTAM SOD 3.375 GM in D5W MINI-BAG PLUS 50 ML IV SCH (04:36)
[2021-10-19] MEDS: HEPARIN DRIP 25,000 UNITS in IV 1 EA IV SCH ×2 (05:06→14:56)
[2021-10-19] MEDS: LEVOTHYROXINE 150MCG TABLET (0.15MG) NG SCH (05:07)
[2021-10-19 06:25] LABS: HEMATOCRIT 29.5 % (42.0-52.0); MEAN CORPUSCULAR HEMOGLOBIN 29.1 pg (27.0-33.0); MEAN CORPUSCULAR HGB CONC 30.5 g/dl (32.0-36.5); MEAN CORPUSCULAR VOLUME 95.5 fl (80.0-96.0); PLATELET COUNT, AUTOMATED 381 10^3/uL (150-450); RED BLOOD COUNT 3.09 10^6/uL (4.30-6.10); WHITE BLOOD COUNT 19.8 10^3/uL (4.0-10.0)
[2021-10-19 06:37] LABS: INR 1.13; PROTHROMBIN TIME 14.9 SECONDS (12.7-14.5)
[2021-10-19 06:39] LABS: PARTIAL THROMBOPLASTIN TIME 68.7 SECONDS (25.9-37.0)
[2021-10-19] MEDS: fentaNYL CITRATE 1,000 MCG in NS 80 ML IV SCH ×2 (06:39→16:40)
[2021-10-19 07:20] LABS: ALBUMIN 2.3 GM/DL (3.2-5.2); ALT/SGPT 47 U/L (12-78); BILIRUBIN,TOTAL 0.5 MG/DL (0.2-1.0); BLOOD UREA NITROGEN 36 MG/DL (7-18); CALCIUM LEVEL 8.9 MG/DL (8.5-10.1); CARBON DIOXIDE LEVEL 30 MEQ/L (21-32); CHLORIDE LEVEL 99 MEQ/L (98-107); CREATININE FOR GFR 1.25 MG/DL (0.70-1.30); GLOMERULAR FILTRATION RATE > 60.0 (>60); GLUCOSE, FASTING 93 MG/DL (70-100); SODIUM LEVEL 140 MEQ/L (136-145)
[2021-10-19 08:12] LABS: ABG BASE EXCESS 5.1 (-2.0-2.0); ABG HCO3 30.7 MEQ/L (22.0-26.0); ABG O2 SATURATION 95.3 % (95.0-99.0); ABG PARTIAL PRESSURE CO2 50.4 mmHg (35.0-45.0); ABG PARTIAL PRESSURE O2 82.8 mmHg (75.0-100.0); ABG TOTAL CO2 32.2 MEQ/L (22.0-29.0); ABG pH (ARTERIAL) 7.402 UNITS (7.350-7.450)
[2021-10-19] MEDS: CHLORHEXIDINE GLUCONATE 0.12 % 15ML UDC (PERIDEX ORAL RINSE) MT SCH ×2 (08:13→21:36)
[2021-10-19] MEDS: BARICITINIB 2MG TABLET (OLUMIANT) FOR EUA PO SCH (08:13)
[2021-10-19] MEDS: PANTOPRAZOLE 40MG VIAL (C9113 PER 1) IV SCH (08:13)
[2021-10-19] MEDS: dexameTHASONE 4 MG/ML 1ML VIAL (J1100 PER 1MG) IV SCH (08:14)
[2021-10-19] MEDS: FUROSEMIDE 40MG/4ML VIAL (J1940) IV SCH ×2 (08:14→16:18)
[2021-10-19] MEDS: MIDAZOLAM HCL 100 MG in D5W 80 ML IV SCH (10:18)
[2021-10-19 10:44] LABS: TRIGLYCERIDES LEVEL 501 MG/DL (<150)
[2021-10-19] MEDS: INSULIN REGULAR IN 0.9 % NACL 100 UNIT in IV 1 EA IV SCH ×2 (14:56)
[2021-10-19] MEDS: INSULIN IV RATE CHANGE DOCUMENTATION ML/HR XX SCH ×3 (18:32→22:34)
[2021-10-20] VITALS (23 sets, daily range): BP systolic 111–153; BP diastolic 59–86
[2021-10-20] MEDS: CISATRACURIUM 200 MG in NS 480 ML IV SCH ×2 (00:36→04:57)
[2021-10-20] MEDS: fentaNYL CITRATE 1,000 MCG in NS 80 ML IV SCH ×2 (00:37→10:23)
[2021-10-20] MEDS: FUROSEMIDE 40MG/4ML VIAL (J1940) IV SCH ×4 (00:37→23:04)
[2021-10-20] MEDS: HEPARIN DRIP 25,000 UNITS in IV 1 EA IV SCH ×2 (00:54→11:30)
[2021-10-20] MEDS: INSULIN IV RATE CHANGE DOCUMENTATION ML/HR XX SCH (00:55)
[2021-10-20] MEDS: propofoL 1,000 MG in IV 1 EA IV SCH ×9 (02:51→18:15)
[2021-10-20] MEDS: MIDAZOLAM HCL 100 MG in D5W 80 ML IV SCH ×2 (03:07→12:10)
[2021-10-20 04:43] LABS: HEMATOCRIT 31.5 % (42.0-52.0); HEMOGLOBIN 9.9 g/dl (13.5-17.5); MEAN CORPUSCULAR HEMOGLOBIN 29.6 pg (27.0-33.0); MEAN CORPUSCULAR HGB CONC 31.4 g/dl (32.0-36.5); PLATELET COUNT, AUTOMATED 431 10^3/uL (150-450); RED BLOOD COUNT 3.35 10^6/uL (4.30-6.10); WHITE BLOOD COUNT 19.6 10^3/uL (4.0-10.0)
[2021-10-20 05:46] LABS: ABG BASE EXCESS 11.3 (-2.0-2.0); ABG HCO3 37.5 MEQ/L (22.0-26.0); ABG O2 SATURATION 95.4 % (95.0-99.0); ABG PARTIAL PRESSURE CO2 57.9 mmHg (35.0-45.0); ABG PARTIAL PRESSURE O2 82.2 mmHg (75.0-100.0); ABG TOTAL CO2 39.3 MEQ/L (22.0-29.0); ABG pH (ARTERIAL) 7.429 UNITS (7.350-7.450)
[2021-10-20] MEDS: LEVOTHYROXINE 150MCG TABLET (0.15MG) NG SCH (06:06)
[2021-10-20 06:18] LABS: ALBUMIN 2.5 GM/DL (3.2-5.2); ALT/SGPT 50 U/L (12-78); BILIRUBIN,TOTAL 0.6 MG/DL (0.2-1.0); BLOOD UREA NITROGEN 39 MG/DL (7-18); CALCIUM LEVEL 8.7 MG/DL (8.5-10.1); CARBON DIOXIDE LEVEL 33 MEQ/L (21-32); CHLORIDE LEVEL 94 MEQ/L (98-107); GLOMERULAR FILTRATION RATE > 60.0 (>60); GLUCOSE, FASTING 130 MG/DL (70-100); MAGNESIUM LEVEL 2.2 MG/DL (1.8-2.4); POTASSIUM SERUM 4.4 MEQ/L (3.5-5.1); SODIUM LEVEL 138 MEQ/L (136-145)
[2021-10-20] MEDS: BARICITINIB 2MG TABLET (OLUMIANT) FOR EUA PO SCH (08:23)
[2021-10-20] MEDS: CHLORHEXIDINE GLUCONATE 0.12 % 15ML UDC (PERIDEX ORAL RINSE) MT SCH ×2 (08:23→20:49)
[2021-10-20] MEDS: PANTOPRAZOLE 40MG VIAL (C9113 PER 1) IV SCH (08:24)
[2021-10-20] MEDS: dexameTHASONE 4 MG/ML 1ML VIAL (J1100 PER 1MG) IV SCH (08:24)
[2021-10-20 08:27] LABS: INR 1.06; PROTHROMBIN TIME 14.2 SECONDS (12.7-14.5)
[2021-10-20 08:29] LABS: PARTIAL THROMBOPLASTIN TIME 82.1 SECONDS (25.9-37.0)
[2021-10-20] MEDS ORDERED: CISATRACURIUM 10MG/ML 20 ML VIAL IV PRN (10:15)
[2021-10-20] MEDS: INSULIN REGULAR IN 0.9 % NACL 100 UNIT in IV 1 EA IV SCH ×2 (13:14)
[2021-10-20] MEDS ORDERED: GLUCOSE 4GM CHEW TABLET PO PRN (13:35)
[2021-10-20] MEDS ORDERED: DEXTROSE 50% 50 ML SYRINGE IV PRN (13:35)
[2021-10-20] MEDS ORDERED: GLUCAGON INJ 1MG VIAL SC PRN (13:35)
[2021-10-20] MEDS: HumaLOG INSULIN (NovoLOG) PER UNIT SC SCH ×3 (13:52→23:09)
[2021-10-21] VITALS (20 sets, daily range): BP systolic 110–142; BP diastolic 60–77
[2021-10-21] MEDS: MIDAZOLAM HCL 100 MG in D5W 80 ML IV SCH ×4 (01:00→19:48)
[2021-10-21] MEDS: fentaNYL CITRATE 1,000 MCG in NS 80 ML IV SCH ×4 (03:30→21:30)
[2021-10-21 04:17] LABS: HEMATOCRIT 30.3 % (42.0-52.0); HEMOGLOBIN 9.7 g/dl (13.5-17.5); MEAN CORPUSCULAR HEMOGLOBIN 29.8 pg (27.0-33.0); MEAN CORPUSCULAR VOLUME 92.9 fl (80.0-96.0); PLATELET COUNT, AUTOMATED 424 10^3/uL (150-450); RED BLOOD COUNT 3.26 10^6/uL (4.30-6.10); WHITE BLOOD COUNT 17.9 10^3/uL (4.0-10.0)
[2021-10-21 05:10] LABS: ALBUMIN 2.5 GM/DL (3.2-5.2); ALT/SGPT 52 U/L (12-78); BILIRUBIN,TOTAL 0.7 MG/DL (0.2-1.0); BLOOD UREA NITROGEN 45 MG/DL (7-18); CALCIUM LEVEL 9.4 MG/DL (8.5-10.1); CARBON DIOXIDE LEVEL 36 MEQ/L (21-32); CHLORIDE LEVEL 93 MEQ/L (98-107); CREATININE FOR GFR 1.22 MG/DL (0.70-1.30); GLOMERULAR FILTRATION RATE > 60.0 (>60); GLUCOSE, FASTING 159 MG/DL (70-100); POTASSIUM SERUM 4.2 MEQ/L (3.5-5.1); SODIUM LEVEL 138 MEQ/L (136-145); TOTAL PROTEIN 7.5 GM/DL (6.4-8.2)
[2021-10-21] MEDS: HumaLOG INSULIN (NovoLOG) PER UNIT SC SCH ×3 (05:22→18:18)
[2021-10-21] MEDS: LEVOTHYROXINE 150MCG TABLET (0.15MG) NG SCH (05:22)
[2021-10-21 06:26] LABS: ABG BASE EXCESS 9.7 (-2.0-2.0); ABG HCO3 34.3 MEQ/L (22.0-26.0); ABG O2 SATURATION 98.7 % (95.0-99.0); ABG PARTIAL PRESSURE CO2 46.6 mmHg (35.0-45.0); ABG STANDARD HCO3 33.5 MEQ/L (22.0-26.0); ABG TOTAL CO2 35.7 MEQ/L (22.0-29.0); ABG pH (ARTERIAL) 7.485 UNITS (7.350-7.450)
[2021-10-21] MEDS: propofoL 1,000 MG in IV 1 EA IV SCH ×9 (07:25→23:43)
[2021-10-21] MEDS: FUROSEMIDE 40MG/4ML VIAL (J1940) IV SCH ×2 (08:12→16:21)
[2021-10-21] MEDS: PANTOPRAZOLE 40MG VIAL (C9113 PER 1) IV SCH (09:20)
[2021-10-21] MEDS: dexameTHASONE 4 MG/ML 1ML VIAL (J1100 PER 1MG) IV SCH (09:20)
[2021-10-21] MEDS: CHLORHEXIDINE GLUCONATE 0.12 % 15ML UDC (PERIDEX ORAL RINSE) MT SCH ×2 (09:21→21:35)
[2021-10-21] MEDS: HEPARIN DRIP 25,000 UNITS in IV 1 EA IV SCH (14:59)
[2021-10-22] VITALS (21 sets, daily range): BP systolic 117–140; BP diastolic 65–88
[2021-10-22] MEDS: HumaLOG INSULIN (NovoLOG) PER UNIT SC SCH ×5 (00:31→23:49)
[2021-10-22] MEDS: FUROSEMIDE 40MG/4ML VIAL (J1940) IV SCH ×4 (00:31→23:45)
[2021-10-22] MEDS: propofoL 1,000 MG in IV 1 EA IV SCH ×4 (02:06→13:01)
[2021-10-22 05:41] LABS: HEMATOCRIT 31.6 % (42.0-52.0); HEMOGLOBIN 10.1 g/dl (13.5-17.5); MEAN CORPUSCULAR HEMOGLOBIN 29.8 pg (27.0-33.0); MEAN CORPUSCULAR VOLUME 93.2 fl (80.0-96.0); PLATELET COUNT, AUTOMATED 461 10^3/uL (150-450); RED BLOOD COUNT 3.39 10^6/uL (4.30-6.10); WHITE BLOOD COUNT 17.7 10^3/uL (4.0-10.0)
[2021-10-22 06:04] LABS: ABG BASE EXCESS 14.7 (-2.0-2.0); ABG HCO3 40.7 MEQ/L (22.0-26.0); ABG PARTIAL PRESSURE CO2 58.6 mmHg (35.0-45.0); ABG PARTIAL PRESSURE O2 84.9 mmHg (75.0-100.0); ABG STANDARD HCO3 38.5 MEQ/L (22.0-26.0); ABG TOTAL CO2 42.5 MEQ/L (22.0-29.0)
[2021-10-22] MEDS: fentaNYL CITRATE 1,000 MCG in NS 80 ML IV SCH ×2 (06:50→15:43)
[2021-10-22] MEDS: MIDAZOLAM HCL 100 MG in D5W 80 ML IV SCH ×2 (06:50→18:29)
[2021-10-22] MEDS: LEVOTHYROXINE 150MCG TABLET (0.15MG) NG SCH (06:51)
[2021-10-22 07:40] LABS: ALBUMIN 2.8 GM/DL (3.2-5.2); ALT/SGPT 45 U/L (12-78); BILIRUBIN,TOTAL 0.6 MG/DL (0.2-1.0); BLOOD UREA NITROGEN 51 MG/DL (7-18); CALCIUM LEVEL 9.6 MG/DL (8.5-10.1); CARBON DIOXIDE LEVEL 37 MEQ/L (21-32); CHLORIDE LEVEL 91 MEQ/L (98-107); CREATININE FOR GFR 1.17 MG/DL (0.70-1.30); GLOMERULAR FILTRATION RATE > 60.0 (>60); GLUCOSE, FASTING 173 MG/DL (70-100); POTASSIUM SERUM 3.9 MEQ/L (3.5-5.1); SODIUM LEVEL 138 MEQ/L (136-145); TOTAL PROTEIN 7.3 GM/DL (6.4-8.2); TRIGLYCERIDES LEVEL 777 MG/DL (<150)
[2021-10-22] MEDS: PANTOPRAZOLE 40MG VIAL (C9113 PER 1) IV SCH (08:27)
[2021-10-22] MEDS: CHLORHEXIDINE GLUCONATE 0.12 % 15ML UDC (PERIDEX ORAL RINSE) MT SCH ×2 (08:27→21:09)
[2021-10-22] MEDS: dexameTHASONE 4 MG/ML 1ML VIAL (J1100 PER 1MG) IV SCH (08:28)
[2021-10-22] MEDS ORDERED: propofoL 1,000 MG in IV 1 EA IV SCH (09:22)
[2021-10-22] MEDS: HEPARIN DRIP 25,000 UNITS in IV 1 EA IV SCH ×2 (11:04→21:09)
[2021-10-22 11:50] LABS: ABG BASE EXCESS 10.3 (-2.0-2.0); ABG HCO3 35.2 MEQ/L (22.0-26.0); ABG O2 SATURATION 94.5 % (95.0-99.0); ABG PARTIAL PRESSURE CO2 48.4 mmHg (35.0-45.0); ABG PARTIAL PRESSURE O2 73.9 mmHg (75.0-100.0); ABG TOTAL CO2 36.6 MEQ/L (22.0-29.0); ABG pH (ARTERIAL) 7.479 UNITS (7.350-7.450)
[2021-10-23] VITALS (21 sets, daily range): BP systolic 118–152; BP diastolic 66–96
[2021-10-23] MEDS: fentaNYL CITRATE 1,000 MCG in NS 80 ML IV SCH ×3 (01:21→16:39)
[2021-10-23 04:59] LABS: ABG BASE EXCESS 15.3 (-2.0-2.0); ABG HCO3 39.8 MEQ/L (22.0-26.0); ABG O2 SATURATION 92.8 % (95.0-99.0); ABG PARTIAL PRESSURE CO2 47.7 mmHg (35.0-45.0); ABG PARTIAL PRESSURE O2 62.4 mmHg (75.0-100.0); ABG STANDARD HCO3 39.1 MEQ/L (22.0-26.0); ABG TOTAL CO2 41.2 MEQ/L (22.0-29.0); ABG pH (ARTERIAL) 7.539 UNITS (7.350-7.450)
[2021-10-23 05:05] LABS: HEMOGLOBIN 10.9 g/dl (13.5-17.5); MEAN CORPUSCULAR HEMOGLOBIN 29.1 pg (27.0-33.0); MEAN CORPUSCULAR HGB CONC 31.1 g/dl (32.0-36.5); MEAN CORPUSCULAR VOLUME 93.3 fl (80.0-96.0); PLATELET COUNT, AUTOMATED 500 10^3/uL (150-450); RED BLOOD COUNT 3.75 10^6/uL (4.30-6.10)
[2021-10-23] MEDS: LEVOTHYROXINE 150MCG TABLET (0.15MG) NG SCH (05:21)
[2021-10-23] MEDS: HumaLOG INSULIN (NovoLOG) PER UNIT SC SCH ×3 (05:31→17:33)
[2021-10-23 05:35] LABS: ALT/SGPT 45 U/L (12-78); BILIRUBIN,TOTAL 0.8 MG/DL (0.2-1.0); BLOOD UREA NITROGEN 57 MG/DL (7-18); CARBON DIOXIDE LEVEL 38 MEQ/L (21-32); CHLORIDE LEVEL 91 MEQ/L (98-107); CREATININE FOR GFR 1.29 MG/DL (0.70-1.30); GLOMERULAR FILTRATION RATE > 60.0 (>60); GLUCOSE, FASTING 209 MG/DL (70-100); POTASSIUM SERUM 4.1 MEQ/L (3.5-5.1); SODIUM LEVEL 139 MEQ/L (136-145); TOTAL PROTEIN 7.9 GM/DL (6.4-8.2); TRIGLYCERIDES LEVEL 737 MG/DL (<150)
[2021-10-23] MEDS: HEPARIN DRIP 25,000 UNITS in IV 1 EA IV SCH (05:40)
[2021-10-23] MEDS: MIDAZOLAM INJ 2MG/2ML VIAL (J2250 PER 1MG) IV PRN ×9 (07:40→22:43)
[2021-10-23] MEDS: MIDAZOLAM HCL 100 MG in D5W 80 ML IV SCH ×4 (07:54→23:50)
[2021-10-23] MEDS: PANTOPRAZOLE 40MG VIAL (C9113 PER 1) IV SCH (08:09)
[2021-10-23] MEDS: CHLORHEXIDINE GLUCONATE 0.12 % 15ML UDC (PERIDEX ORAL RINSE) MT SCH ×2 (08:09→20:56)
[2021-10-23] MEDS: dexameTHASONE 4 MG/ML 1ML VIAL (J1100 PER 1MG) IV SCH (08:09)
[2021-10-23] MEDS ORDERED: FUROSEMIDE 40MG/4ML VIAL (J1940) IV SCH (09:00)
[2021-10-23] MEDS ORDERED: CISATRACURIUM 10MG/ML 20 ML VIAL As Ordered ONE (13:00)
[2021-10-23] MEDS ORDERED: CISATRACURIUM 10MG/ML 20 ML VIAL IV ONE (13:00)
[2021-10-23] MEDS ORDERED: LIDOCAINE 1% MDV 20ML VIAL As Ordered ONE (15:34)
[2021-10-23] MEDS ORDERED: SODIUM CHLORIDE 0.9% INJ 10 ML SYR IV PRN (17:00)
[2021-10-23] MEDS: NYSTATIN CREAM 15 GM TOP SCH ×2 (17:34→20:57)
[2021-10-23] MEDS: SODIUM CHLORIDE 0.9% INJ 10 ML SYR IV SCH (17:46)
[2021-10-23] MEDS: ACETAMINOPHEN 325 MG/10.15 ML UDC GT PRN (20:57)
[2021-10-23] MEDS: ENOXAPARIN 150MG/ML SYRINGE (J1650 PER 10MG) SC SCH (21:19)
[2021-10-23] MEDS ORDERED: PIPERACILLIN/TAZOBACTAM SOD 3.375 GM in D5W MINI-BAG PLUS 50 ML IV SCH (22:00)
[2021-10-23] MEDS ORDERED: ENOXAPARIN 150MG/ML SYRINGE (J1650 PER 10MG) SC SCH (22:00)
[2021-10-23] MEDS: PIPERACILLIN/TAZOBACTAM SOD 3.375 GM in D5W MINI-BAG PLUS 50 ML IV SCH (22:41)
[2021-10-24] VITALS (30 sets, daily range): BP systolic 111–199; BP diastolic 67–105
[2021-10-24] MEDS: MIDAZOLAM INJ 2MG/2ML VIAL (J2250 PER 1MG) IV PRN ×2 (00:11→17:17)
[2021-10-24] MEDS: HumaLOG INSULIN (NovoLOG) PER UNIT SC SCH ×4 (00:12→17:18)
[2021-10-24] MEDS: fentaNYL CITRATE 1,000 MCG in NS 80 ML IV SCH ×3 (02:48→23:50)
[2021-10-24] MEDS: PIPERACILLIN/TAZOBACTAM SOD 3.375 GM in D5W MINI-BAG PLUS 50 ML IV SCH ×4 (04:26→22:37)
[2021-10-24 05:01] LABS: HEMATOCRIT 35.8 % (42.0-52.0); HEMOGLOBIN 11.2 g/dl (13.5-17.5); MEAN CORPUSCULAR HEMOGLOBIN 29.5 pg (27.0-33.0); MEAN CORPUSCULAR HGB CONC 31.3 g/dl (32.0-36.5); MEAN CORPUSCULAR VOLUME 94.2 fl (80.0-96.0); PLATELET COUNT, AUTOMATED 475 10^3/uL (150-450); WHITE BLOOD COUNT 18.8 10^3/uL (4.0-10.0)
[2021-10-24 05:14] LABS: ABG BASE EXCESS 7.2 (-2.0-2.0); ABG HCO3 31.4 MEQ/L (22.0-26.0); ABG O2 SATURATION 95.2 % (95.0-99.0); ABG PARTIAL PRESSURE O2 77.9 mmHg (75.0-100.0); ABG TOTAL CO2 32.8 MEQ/L (22.0-29.0); ABG pH (ARTERIAL) 7.482 UNITS (7.350-7.450)
[2021-10-24 05:21] LABS: ALT/SGPT 44 U/L (12-78); BILIRUBIN,TOTAL 0.9 MG/DL (0.2-1.0); BLOOD UREA NITROGEN 51 MG/DL (7-18); CALCIUM LEVEL 9.7 MG/DL (8.5-10.1); CARBON DIOXIDE LEVEL 31 MEQ/L (21-32); CHLORIDE LEVEL 98 MEQ/L (98-107); CREATININE FOR GFR 1.11 MG/DL (0.70-1.30); GLOMERULAR FILTRATION RATE > 60.0 (>60); GLUCOSE, FASTING 297 MG/DL (70-100); POTASSIUM SERUM 4.2 MEQ/L (3.5-5.1); SODIUM LEVEL 139 MEQ/L (136-145); TOTAL PROTEIN 8.2 GM/DL (6.4-8.2)
[2021-10-24] MEDS: LEVOTHYROXINE 150MCG TABLET (0.15MG) NG SCH (05:30)
[2021-10-24] MEDS: SODIUM CHLORIDE 0.9% INJ 10 ML SYR IV SCH ×2 (05:36→17:16)
[2021-10-24] MEDS: CHLORHEXIDINE GLUCONATE 0.12 % 15ML UDC (PERIDEX ORAL RINSE) MT SCH ×2 (08:19→20:47)
[2021-10-24] MEDS: PANTOPRAZOLE 40MG VIAL (C9113 PER 1) IV SCH (08:19)
[2021-10-24] MEDS: FUROSEMIDE 40MG/4ML VIAL (J1940) IV SCH (08:19)
[2021-10-24] MEDS: dexameTHASONE 4 MG/ML 1ML VIAL (J1100 PER 1MG) IV SCH (08:27)
[2021-10-24] MEDS: ENOXAPARIN 150MG/ML SYRINGE (J1650 PER 10MG) SC SCH ×2 (10:34→22:37)
[2021-10-24] MEDS: NYSTATIN CREAM 15 GM TOP SCH ×2 (10:34→20:49)
[2021-10-24] MEDS: VANCOMYCIN HCL 1,000 MG, VIAL MATE ADAPTER 1 EACH in NS 250 ML IV SCH ×3 (10:35→18:23)
[2021-10-24] MEDS: MIDAZOLAM HCL 100 MG in D5W 80 ML IV SCH ×2 (12:07→22:14)
[2021-10-25] VITALS (22 sets, daily range): BP systolic 109–156; BP diastolic 55–97
[2021-10-25] MEDS: HumaLOG INSULIN (NovoLOG) PER UNIT SC SCH ×5 (00:08→23:15)
[2021-10-25] MEDS: MIDAZOLAM INJ 2MG/2ML VIAL (J2250 PER 1MG) IV PRN ×4 (01:12→15:51)
[2021-10-25] MEDS: VANCOMYCIN HCL 1,000 MG, VIAL MATE ADAPTER 1 EACH in NS 250 ML IV SCH ×2 (01:12→13:42)
[2021-10-25] MEDS: PIPERACILLIN/TAZOBACTAM SOD 3.375 GM in D5W MINI-BAG PLUS 50 ML IV SCH ×4 (05:35→23:12)
[2021-10-25] MEDS: LEVOTHYROXINE 150MCG TABLET (0.15MG) NG SCH (05:35)
[2021-10-25] MEDS: SODIUM CHLORIDE 0.9% INJ 10 ML SYR IV SCH ×2 (05:36→17:12)
[2021-10-25 05:59] LABS: ABG BASE EXCESS 6.9 (-2.0-2.0); ABG HCO3 31.7 MEQ/L (22.0-26.0); ABG O2 SATURATION 98.7 % (95.0-99.0); ABG PARTIAL PRESSURE CO2 46.2 mmHg (35.0-45.0); ABG STANDARD HCO3 30.7 MEQ/L (22.0-26.0); ABG TOTAL CO2 33.1 MEQ/L (22.0-29.0); ABG pH (ARTERIAL) 7.454 UNITS (7.350-7.450)
[2021-10-25 06:16] LABS: HEMATOCRIT 33.8 % (42.0-52.0); HEMOGLOBIN 10.5 g/dl (13.5-17.5); MEAN CORPUSCULAR HEMOGLOBIN 29.4 pg (27.0-33.0); MEAN CORPUSCULAR HGB CONC 31.1 g/dl (32.0-36.5); MEAN CORPUSCULAR VOLUME 94.7 fl (80.0-96.0); PLATELET COUNT, AUTOMATED 415 10^3/uL (150-450); RED BLOOD COUNT 3.57 10^6/uL (4.30-6.10); WHITE BLOOD COUNT 12.5 10^3/uL (4.0-10.0)
[2021-10-25 06:49] LABS: ALBUMIN 2.8 GM/DL (3.2-5.2); ALT/SGPT 34 U/L (12-78); BILIRUBIN,TOTAL 0.7 MG/DL (0.2-1.0); BLOOD UREA NITROGEN 52 MG/DL (7-18); CALCIUM LEVEL 9.8 MG/DL (8.5-10.1); CARBON DIOXIDE LEVEL 31 MEQ/L (21-32); CHLORIDE LEVEL 104 MEQ/L (98-107); CREATININE FOR GFR 1.21 MG/DL (0.70-1.30); GLOMERULAR FILTRATION RATE > 60.0 (>60); GLUCOSE, FASTING 261 MG/DL (70-100); POTASSIUM SERUM 4.1 MEQ/L (3.5-5.1); SODIUM LEVEL 142 MEQ/L (136-145); TOTAL PROTEIN 7.7 GM/DL (6.4-8.2)
[2021-10-25] MEDS: PANTOPRAZOLE 40MG VIAL (C9113 PER 1) IV SCH (08:06)
[2021-10-25] MEDS: NYSTATIN CREAM 15 GM TOP SCH ×2 (08:06→20:19)
[2021-10-25] MEDS: FUROSEMIDE 40MG/4ML VIAL (J1940) IV SCH (08:07)
[2021-10-25] MEDS: dexameTHASONE 4 MG/ML 1ML VIAL (J1100 PER 1MG) IV SCH (08:07)
[2021-10-25] MEDS: ENOXAPARIN 150MG/ML SYRINGE (J1650 PER 10MG) SC SCH ×2 (09:01→23:12)
[2021-10-25] MEDS: CHLORHEXIDINE GLUCONATE 0.12 % 15ML UDC (PERIDEX ORAL RINSE) MT SCH ×2 (09:01→20:19)
[2021-10-25] MEDS: fentaNYL CITRATE 1,000 MCG in NS 80 ML IV SCH ×2 (11:00→23:00)
[2021-10-25] MEDS: MIDAZOLAM HCL 100 MG in D5W 80 ML IV SCH ×2 (11:00→23:55)
[2021-10-25] MEDS: MICAFUNGIN SODIUM 100 MG in D5W MINI-BAG PLUS 100 ML IV SCH (12:22)
[2021-10-26] VITALS (24 sets, daily range): BP systolic 120–143; BP diastolic 66–97
[2021-10-26] MEDS: MIDAZOLAM INJ 2MG/2ML VIAL (J2250 PER 1MG) IV PRN ×8 (00:05→18:20)
[2021-10-26] MEDS: VANCOMYCIN HCL 1,000 MG, VIAL MATE ADAPTER 1 EACH in NS 250 ML IV SCH ×2 (02:20→15:15)
[2021-10-26] MEDS: PIPERACILLIN/TAZOBACTAM SOD 3.375 GM in D5W MINI-BAG PLUS 50 ML IV SCH ×4 (04:09→22:53)
[2021-10-26 04:31] LABS: HEMATOCRIT 34.8 % (42.0-52.0); HEMOGLOBIN 10.8 g/dl (13.5-17.5); MEAN CORPUSCULAR HEMOGLOBIN 29.4 pg (27.0-33.0); MEAN CORPUSCULAR VOLUME 94.8 fl (80.0-96.0); PLATELET COUNT, AUTOMATED 400 10^3/uL (150-450); RED BLOOD COUNT 3.67 10^6/uL (4.30-6.10); WHITE BLOOD COUNT 11.1 10^3/uL (4.0-10.0)
[2021-10-26] MEDS: LEVOTHYROXINE 150MCG TABLET (0.15MG) NG SCH (05:05)
[2021-10-26] MEDS: HumaLOG INSULIN (NovoLOG) PER UNIT SC SCH ×3 (05:12→18:07)
[2021-10-26] MEDS: SODIUM CHLORIDE 0.9% INJ 10 ML SYR IV SCH ×2 (05:13→17:27)
[2021-10-26 05:34] LABS: ABG BASE EXCESS 4.8 (-2.0-2.0); ABG O2 SATURATION 96.8 % (95.0-99.0); ABG PARTIAL PRESSURE CO2 41.2 mmHg (35.0-45.0); ABG PARTIAL PRESSURE O2 89.7 mmHg (75.0-100.0); ABG STANDARD HCO3 28.8 MEQ/L (22.0-26.0); ABG TOTAL CO2 30.2 MEQ/L (22.0-29.0); ABG pH (ARTERIAL) 7.465 UNITS (7.350-7.450)
[2021-10-26 05:38] LABS: ALBUMIN 2.9 GM/DL (3.2-5.2); ALT/SGPT 39 U/L (12-78); BILIRUBIN,TOTAL 0.7 MG/DL (0.2-1.0); BLOOD UREA NITROGEN 49 MG/DL (7-18); CALCIUM LEVEL 9.5 MG/DL (8.5-10.1); CARBON DIOXIDE LEVEL 29 MEQ/L (21-32); CHLORIDE LEVEL 105 MEQ/L (98-107); CREATININE FOR GFR 1.23 MG/DL (0.70-1.30); GLOMERULAR FILTRATION RATE > 60.0 (>60); GLUCOSE, FASTING 229 MG/DL (70-100); SODIUM LEVEL 142 MEQ/L (136-145); TOTAL PROTEIN 7.6 GM/DL (6.4-8.2)
[2021-10-26] MEDS: PANTOPRAZOLE 40MG VIAL (C9113 PER 1) IV SCH (08:26)
[2021-10-26] MEDS: NYSTATIN CREAM 15 GM TOP SCH ×2 (08:26→21:51)
[2021-10-26] MEDS: FUROSEMIDE 40 MG TAB PO SCH (08:26)
[2021-10-26] MEDS: CHLORHEXIDINE GLUCONATE 0.12 % 15ML UDC (PERIDEX ORAL RINSE) MT SCH ×2 (08:26→20:06)
[2021-10-26] MEDS: dexameTHASONE 4 MG/ML 1ML VIAL (J1100 PER 1MG) IV SCH (08:26)
[2021-10-26] MEDS: fentaNYL CITRATE 1,000 MCG in NS 80 ML IV SCH (11:00)
[2021-10-26] MEDS: MIDAZOLAM HCL 100 MG in D5W 80 ML IV SCH (11:00)
[2021-10-26] MEDS: ENOXAPARIN 150MG/ML SYRINGE (J1650 PER 10MG) SC SCH ×2 (11:12→21:51)
[2021-10-26] MEDS: ACETAMINOPHEN 325 MG/10.15 ML UDC GT PRN (11:12)
[2021-10-26] MEDS: MICAFUNGIN SODIUM 100 MG in D5W MINI-BAG PLUS 100 ML IV SCH (11:52)
[2021-10-26] MEDS ORDERED: LEVEMIR (INSULIN DETEMIR) 1 UNITS/0.01ML SC SCH (21:00)
[2021-10-27] VITALS (23 sets, daily range): BP systolic 121–156; BP diastolic 75–99
[2021-10-27] MEDS: HumaLOG INSULIN (NovoLOG) PER UNIT SC SCH ×5 (00:15→23:48)
[2021-10-27] MEDS: MIDAZOLAM HCL 100 MG in D5W 80 ML IV SCH (01:06)
[2021-10-27] MEDS: VANCOMYCIN HCL 1,000 MG, VIAL MATE ADAPTER 1 EACH in NS 250 ML IV SCH ×2 (01:37→14:01)
[2021-10-27] MEDS: MIDAZOLAM INJ 2MG/2ML VIAL (J2250 PER 1MG) IV PRN ×2 (02:14→02:17)
[2021-10-27] MEDS: PIPERACILLIN/TAZOBACTAM SOD 3.375 GM in D5W MINI-BAG PLUS 50 ML IV SCH ×4 (05:03→23:48)
[2021-10-27] MEDS: LEVOTHYROXINE 150MCG TABLET (0.15MG) NG SCH (05:05)
[2021-10-27] MEDS: SODIUM CHLORIDE 0.9% INJ 10 ML SYR IV SCH ×2 (05:06→17:40)
[2021-10-27] MEDS: fentaNYL CITRATE 1,000 MCG in NS 80 ML IV SCH (05:16)
[2021-10-27 05:56] LABS: HEMATOCRIT 35.8 % (42.0-52.0); HEMOGLOBIN 11.2 g/dl (13.5-17.5); MEAN CORPUSCULAR HEMOGLOBIN 29.5 pg (27.0-33.0); MEAN CORPUSCULAR HGB CONC 31.3 g/dl (32.0-36.5); MEAN CORPUSCULAR VOLUME 94.2 fl (80.0-96.0); PLATELET COUNT, AUTOMATED 356 10^3/uL (150-450); WHITE BLOOD COUNT 9.4 10^3/uL (4.0-10.0)
[2021-10-27 06:04] LABS: ABG BASE EXCESS 2.8 (-2.0-2.0); ABG HCO3 26.8 MEQ/L (22.0-26.0); ABG O2 SATURATION 97.2 % (95.0-99.0); ABG PARTIAL PRESSURE CO2 39.3 mmHg (35.0-45.0); ABG PARTIAL PRESSURE O2 97.7 mmHg (75.0-100.0); ABG STANDARD HCO3 26.9 MEQ/L (22.0-26.0); ABG pH (ARTERIAL) 7.452 UNITS (7.350-7.450)
[2021-10-27 06:29] LABS: ALBUMIN 2.9 GM/DL (3.2-5.2); ALT/SGPT 45 U/L (12-78); BILIRUBIN,TOTAL 0.7 MG/DL (0.2-1.0); BLOOD UREA NITROGEN 46 MG/DL (7-18); CALCIUM LEVEL 9.5 MG/DL (8.5-10.1); CARBON DIOXIDE LEVEL 30 MEQ/L (21-32); CHLORIDE LEVEL 105 MEQ/L (98-107); CREATININE FOR GFR 1.09 MG/DL (0.70-1.30); GLOMERULAR FILTRATION RATE > 60.0 (>60); GLUCOSE, FASTING 264 MG/DL (70-100); SODIUM LEVEL 141 MEQ/L (136-145); TOTAL PROTEIN 7.6 GM/DL (6.4-8.2)
[2021-10-27] MEDS: dexameTHASONE 4 MG/ML 1ML VIAL (J1100 PER 1MG) IV SCH (08:15)
[2021-10-27] MEDS: PANTOPRAZOLE 40MG VIAL (C9113 PER 1) IV SCH (08:15)
[2021-10-27] MEDS: FUROSEMIDE 40 MG TAB PO SCH (08:15)
[2021-10-27] MEDS: NYSTATIN CREAM 15 GM TOP SCH ×2 (08:16→22:02)
[2021-10-27] MEDS: CHLORHEXIDINE GLUCONATE 0.12 % 15ML UDC (PERIDEX ORAL RINSE) MT SCH (08:16)
[2021-10-27 10:05] LABS: ABG BASE EXCESS 2.9 (-2.0-2.0); ABG HCO3 27.6 MEQ/L (22.0-26.0); ABG O2 LITER FLOW 30; ABG O2 SATURATION 96.6 % (95.0-99.0); ABG PARTIAL PRESSURE CO2 42.4 mmHg (35.0-45.0); ABG STANDARD HCO3 27.1 MEQ/L (22.0-26.0); ABG TOTAL CO2 28.9 MEQ/L (22.0-29.0); ABG pH (ARTERIAL) 7.431 UNITS (7.350-7.450)
[2021-10-27] MEDS: ENOXAPARIN 150MG/ML SYRINGE (J1650 PER 10MG) SC SCH ×2 (10:32→22:02)
[2021-10-27] MEDS: MICAFUNGIN SODIUM 100 MG in D5W MINI-BAG PLUS 100 ML IV SCH (11:47)
[2021-10-27 14:27] LABS: ABG BASE EXCESS 3.2 (-2.0-2.0); ABG HCO3 27.2 MEQ/L (22.0-26.0); ABG O2 SATURATION 98.2 % (95.0-99.0); ABG PARTIAL PRESSURE CO2 39.4 mmHg (35.0-45.0); ABG PARTIAL PRESSURE O2 114.1 mmHg (75.0-100.0); ABG STANDARD HCO3 27.3 MEQ/L (22.0-26.0); ABG TOTAL CO2 28.4 MEQ/L (22.0-29.0); ABG pH (ARTERIAL) 7.457 UNITS (7.350-7.450)
[2021-10-27] MEDS: LEVEMIR (INSULIN DETEMIR) 1 UNITS/0.01ML SC SCH (22:02)
[2021-10-28] VITALS (12 sets, daily range): BP systolic 114–144; BP diastolic 64–91
[2021-10-28] MEDS: VANCOMYCIN HCL 1,000 MG, VIAL MATE ADAPTER 1 EACH in NS 250 ML IV SCH ×2 (01:34→13:38)
[2021-10-28 05:49] LABS: HEMATOCRIT 38.8 % (42.0-52.0); HEMOGLOBIN 12.2 g/dl (13.5-17.5); MEAN CORPUSCULAR HGB CONC 31.4 g/dl (32.0-36.5); MEAN CORPUSCULAR VOLUME 92.4 fl (80.0-96.0); PLATELET COUNT, AUTOMATED 358 10^3/uL (150-450); WHITE BLOOD COUNT 10.7 10^3/uL (4.0-10.0)
[2021-10-28] MEDS: PIPERACILLIN/TAZOBACTAM SOD 3.375 GM in D5W MINI-BAG PLUS 50 ML IV SCH ×3 (05:59→16:42)
[2021-10-28 06:00] LABS: ABG BASE EXCESS 5.8 (-2.0-2.0); ABG HCO3 30.3 MEQ/L (22.0-26.0); ABG O2 SATURATION 98.1 % (95.0-99.0); ABG PARTIAL PRESSURE CO2 43.6 mmHg (35.0-45.0); ABG PARTIAL PRESSURE O2 113.2 mmHg (75.0-100.0); ABG STANDARD HCO3 29.7 MEQ/L (22.0-26.0); ABG TOTAL CO2 31.7 MEQ/L (22.0-29.0)
[2021-10-28] MEDS: SODIUM CHLORIDE 0.9% INJ 10 ML SYR IV SCH (06:00)
[2021-10-28] MEDS: LEVOTHYROXINE 150MCG TABLET (0.15MG) NG SCH (06:00)
[2021-10-28 06:18] LABS: ALBUMIN 2.9 GM/DL (3.2-5.2); ALT/SGPT 43 U/L (12-78); BILIRUBIN,TOTAL 0.8 MG/DL (0.2-1.0); BLOOD UREA NITROGEN 45 MG/DL (7-18); CALCIUM LEVEL 9.8 MG/DL (8.5-10.1); CARBON DIOXIDE LEVEL 28 MEQ/L (21-32); CHLORIDE LEVEL 108 MEQ/L (98-107); GLOMERULAR FILTRATION RATE > 60.0 (>60); GLUCOSE, FASTING 243 MG/DL (70-100); SODIUM LEVEL 144 MEQ/L (136-145); TOTAL PROTEIN 7.9 GM/DL (6.4-8.2)
[2021-10-28] MEDS: HumaLOG INSULIN (NovoLOG) PER UNIT SC SCH ×3 (06:20→17:46)
[2021-10-28] MEDS: dexameTHASONE 4 MG/ML 1ML VIAL (J1100 PER 1MG) IV SCH (08:31)
[2021-10-28] MEDS: FUROSEMIDE 40 MG TAB PO SCH (08:31)
[2021-10-28] MEDS: PANTOPRAZOLE 40MG VIAL (C9113 PER 1) IV SCH (08:31)
[2021-10-28] MEDS: NYSTATIN CREAM 15 GM TOP SCH ×2 (08:32→20:38)
[2021-10-28] MEDS: ENOXAPARIN 150MG/ML SYRINGE (J1650 PER 10MG) SC SCH (10:05)
[2021-10-28 10:56] LABS: BLOOD UREA NITROGEN 45 MG/DL (7-18); CALCIUM LEVEL 9.9 MG/DL (8.5-10.1); CARBON DIOXIDE LEVEL 26 MEQ/L (21-32); CHLORIDE LEVEL 106 MEQ/L (98-107); GLOMERULAR FILTRATION RATE > 60.0 (>60); GLUCOSE, FASTING 346 MG/DL (70-100); POTASSIUM SERUM 3.9 MEQ/L (3.5-5.1); SODIUM LEVEL 142 MEQ/L (136-145)
[2021-10-28] MEDS: MICAFUNGIN SODIUM 100 MG in D5W MINI-BAG PLUS 100 ML IV SCH (11:53)
[2021-10-28 14:27] LABS: HEMOGLOBIN A1c 11.4 %
[2021-10-28] MEDS: IPRATROPIUM 0.5MG/ALBUTEROL 2.5MG INH SOL UD 3ML (DUONEB) NEB SCH ×2 (15:13→20:13)
[2021-10-28] MEDS: LEVEMIR (INSULIN DETEMIR) 1 UNITS/0.01ML SC SCH (20:38)
[2021-10-29] VITALS (7 sets, daily range): BP systolic 134–152; BP diastolic 79–89; O2SAT 97
[2021-10-29] MEDS: PIPERACILLIN/TAZOBACTAM SOD 3.375 GM in D5W MINI-BAG PLUS 50 ML IV SCH ×5 (00:02→23:41)
[2021-10-29] MEDS: HumaLOG INSULIN (NovoLOG) PER UNIT SC SCH ×5 (00:02→21:00)
[2021-10-29] MEDS: VANCOMYCIN HCL 1,000 MG, VIAL MATE ADAPTER 1 EACH in NS 250 ML IV SCH ×2 (01:27→15:16)
[2021-10-29 04:53] LABS: HEMATOCRIT 37.1 % (42.0-52.0); HEMOGLOBIN 11.9 g/dl (13.5-17.5); MEAN CORPUSCULAR HEMOGLOBIN 29.4 pg (27.0-33.0); MEAN CORPUSCULAR HGB CONC 32.1 g/dl (32.0-36.5); MEAN CORPUSCULAR VOLUME 91.6 fl (80.0-96.0); PLATELET COUNT, AUTOMATED 313 10^3/uL (150-450); RED BLOOD COUNT 4.05 10^6/uL (4.30-6.10); WHITE BLOOD COUNT 11.5 10^3/uL (4.0-10.0)
[2021-10-29 05:48] LABS: ALT/SGPT 47 U/L (12-78); BILIRUBIN,TOTAL 0.8 MG/DL (0.2-1.0); BLOOD UREA NITROGEN 42 MG/DL (7-18); CALCIUM LEVEL 9.4 MG/DL (8.5-10.1); CARBON DIOXIDE LEVEL 26 MEQ/L (21-32); CHLORIDE LEVEL 106 MEQ/L (98-107); CREATININE FOR GFR 1.16 MG/DL (0.70-1.30); GLOMERULAR FILTRATION RATE > 60.0 (>60); GLUCOSE, FASTING 200 MG/DL (70-100); POTASSIUM SERUM 3.8 MEQ/L (3.5-5.1); SODIUM LEVEL 141 MEQ/L (136-145)
[2021-10-29] MEDS: LEVOTHYROXINE 150MCG TABLET (0.15MG) PO SCH (06:13)
[2021-10-29] MEDS: IPRATROPIUM 0.5MG/ALBUTEROL 2.5MG INH SOL UD 3ML (DUONEB) NEB SCH ×4 (08:04→20:45)
[2021-10-29] MEDS: PANTOPRAZOLE 40MG VIAL (C9113 PER 1) IV SCH (09:48)
[2021-10-29] MEDS: FUROSEMIDE 40 MG TAB PO SCH (09:48)
[2021-10-29] MEDS: NYSTATIN CREAM 15 GM TOP SCH ×2 (09:49→21:44)
[2021-10-29] MEDS: dexameTHASONE 4 MG/ML 1ML VIAL (J1100 PER 1MG) IV SCH (09:49)
[2021-10-29] MEDS: ENOXAPARIN 40MG/0.4ML SYRINGE (J1650 PER 10MG) SC SCH (09:49)
[2021-10-29] MEDS: MICAFUNGIN SODIUM 100 MG in D5W MINI-BAG PLUS 100 ML IV SCH (12:32)
[2021-10-29] MEDS: MUPIROCIN 2% OINT 22 GM TUBE TOP SCH (21:00)
[2021-10-29] MEDS: LEVEMIR (INSULIN DETEMIR) 1 UNITS/0.01ML SC SCH (21:44)
[2021-10-29] MEDS: RAMELTEON 8 MG TAB (ROZEREM) PO SCH (21:44)
[2021-10-30] MEDS ORDERED: LIDOCAINE W/EPINEPHRINE 1% 20ML VIAL SC ONE (03:25)
[2021-10-30 04:00] VITALS: BP 139/86
[2021-10-30] MEDS: LEVOTHYROXINE 150MCG TABLET (0.15MG) PO SCH (05:13)
[2021-10-30 07:26] LABS: HEMATOCRIT 40.4 % (42.0-52.0); MEAN CORPUSCULAR HEMOGLOBIN 29.1 pg (27.0-33.0); MEAN CORPUSCULAR HGB CONC 32.2 g/dl (32.0-36.5); MEAN CORPUSCULAR VOLUME 90.6 fl (80.0-96.0); PLATELET COUNT, AUTOMATED 272 10^3/uL (150-450); RED BLOOD COUNT 4.46 10^6/uL (4.30-6.10); WHITE BLOOD COUNT 10.2 10^3/uL (4.0-10.0)
[2021-10-30 07:56] VITALS: BP 134/84
[2021-10-30 08:03] LABS: ALBUMIN 2.9 GM/DL (3.2-5.2); ALT/SGPT 56 U/L (12-78); BILIRUBIN,TOTAL 0.9 MG/DL (0.2-1.0); BLOOD UREA NITROGEN 37 MG/DL (7-18); CALCIUM LEVEL 9.6 MG/DL (8.5-10.1); CARBON DIOXIDE LEVEL 28 MEQ/L (21-32); CHLORIDE LEVEL 102 MEQ/L (98-107); CREATININE FOR GFR 1.16 MG/DL (0.70-1.30); GLOMERULAR FILTRATION RATE > 60.0 (>60); GLUCOSE, FASTING 210 MG/DL (70-100); POTASSIUM SERUM 4.2 MEQ/L (3.5-5.1); SODIUM LEVEL 138 MEQ/L (136-145); TOTAL PROTEIN 7.8 GM/DL (6.4-8.2)
[2021-10-30] MEDS: HumaLOG INSULIN (NovoLOG) PER UNIT SC SCH ×4 (08:18→21:05)
[2021-10-30] MEDS: IPRATROPIUM 0.5MG/ALBUTEROL 2.5MG INH SOL UD 3ML (DUONEB) NEB SCH ×4 (08:31→20:14)
[2021-10-30] MEDS ORDERED: LEVEMIR (INSULIN DETEMIR) 1 UNITS/0.01ML SC SCH (09:00)
[2021-10-30] MEDS ORDERED: MORPHINE 2 MG/ML 1ML VIAL (J2270) IV PRN (09:05)
[2021-10-30] MEDS: PERCOCET 5MG/325MG TAB PO PRN ×4 (09:22→23:26)
[2021-10-30] MEDS: ENOXAPARIN 40MG/0.4ML SYRINGE (J1650 PER 10MG) SC SCH (09:22)
[2021-10-30] MEDS: PANTOPRAZOLE 40MG VIAL (C9113 PER 1) IV SCH (09:22)
[2021-10-30] MEDS: TAMSULOSIN 0.4 MG CAP PO SCH (09:23)
[2021-10-30] MEDS: dexameTHASONE 4 MG/ML 1ML VIAL (J1100 PER 1MG) IV SCH (09:23)
[2021-10-30] MEDS: FUROSEMIDE 40 MG TAB PO SCH (09:23)
[2021-10-30] MEDS: MUPIROCIN 2% OINT 22 GM TUBE TOP SCH ×2 (09:24→21:06)
[2021-10-30] MEDS: NYSTATIN CREAM 15 GM TOP SCH ×2 (09:24→21:06)
[2021-10-30] MEDS: MICAFUNGIN SODIUM 100 MG in D5W MINI-BAG PLUS 100 ML IV SCH (13:02)
[2021-10-30] MEDS ORDERED: E-Z-PAQUE 96% w/w SUSP 176GM BTL As Ordered ONE (13:16)
[2021-10-30] MEDS ORDERED: VARIBAR NECTAR 40% w/v 240ML SUSP BTL As Ordered ONE (13:16)
[2021-10-30] MEDS ORDERED: VARIBAR PUDDING 40% w/v 230ML TUBE As Ordered ONE (13:16)
[2021-10-30] MEDS ORDERED: BARIUM SULFATE 700 MG TABLET (E-Z-DISK) As Ordered ONE (13:17)
[2021-10-30 16:34] VITALS: BP 139/88
[2021-10-30 20:00] VITALS: BP 147/94
[2021-10-30] MEDS: RAMELTEON 8 MG TAB (ROZEREM) PO SCH (21:05)
[2021-10-30] MEDS: LEVEMIR (INSULIN DETEMIR) 1 UNITS/0.01ML SC SCH (21:51)
[2021-10-30 22:00] VITALS: BP_SYST 146; BP_SYST 147; BP_DIAS 90; BP_DIAS 94
[2021-10-31] VITALS (9 sets, daily range): BP systolic 127–147; BP diastolic 73–98
[2021-10-31] MEDS ORDERED: NALOXONE INJ 0.4MG/1ML VIAL (J2310 PER 1MG) IV PRN (00:20)
[2021-10-31] MEDS: MORPHINE 2 MG/ML 1ML VIAL (J2270) IV PRN ×2 (03:51→12:07)
[2021-10-31 04:43] LABS: HEMATOCRIT 41.1 % (42.0-52.0); HEMOGLOBIN 13.4 g/dl (13.5-17.5); MEAN CORPUSCULAR HGB CONC 32.6 g/dl (32.0-36.5); PLATELET COUNT, AUTOMATED 301 10^3/uL (150-450); RED BLOOD COUNT 4.62 10^6/uL (4.30-6.10); WHITE BLOOD COUNT 12.8 10^3/uL (4.0-10.0)
[2021-10-31 05:10] LABS: ALT/SGPT 55 U/L (12-78); BILIRUBIN,TOTAL 0.8 MG/DL (0.2-1.0); BLOOD UREA NITROGEN 32 MG/DL (7-18); CARBON DIOXIDE LEVEL 26 MEQ/L (21-32); CHLORIDE LEVEL 103 MEQ/L (98-107); CREATININE FOR GFR 1.08 MG/DL (0.70-1.30); GLOMERULAR FILTRATION RATE > 60.0 (>60); GLUCOSE, FASTING 169 MG/DL (70-100); POTASSIUM SERUM 3.5 MEQ/L (3.5-5.1); SODIUM LEVEL 136 MEQ/L (136-145); TOTAL PROTEIN 8.6 GM/DL (6.4-8.2)
[2021-10-31] MEDS: LEVOTHYROXINE 150MCG TABLET (0.15MG) PO SCH (05:28)
[2021-10-31] MEDS: LEVEMIR (INSULIN DETEMIR) 1 UNITS/0.01ML SC SCH ×2 (08:40→20:22)
[2021-10-31] MEDS: HumaLOG INSULIN (NovoLOG) PER UNIT SC SCH ×4 (08:40→20:17)
[2021-10-31] MEDS: PERCOCET 5MG/325MG TAB PO PRN ×3 (08:42→20:23)
[2021-10-31] MEDS: FUROSEMIDE 40 MG TAB PO SCH (08:42)
[2021-10-31] MEDS: TAMSULOSIN 0.4 MG CAP PO SCH (08:42)
[2021-10-31] MEDS: MUPIROCIN 2% OINT 22 GM TUBE TOP SCH ×2 (08:43→20:23)
[2021-10-31] MEDS: ENOXAPARIN 40MG/0.4ML SYRINGE (J1650 PER 10MG) SC SCH (08:43)
[2021-10-31] MEDS: NYSTATIN CREAM 15 GM TOP SCH ×2 (08:44→20:23)
[2021-10-31] MEDS: PANTOPRAZOLE 40MG VIAL (C9113 PER 1) IV SCH (08:46)
[2021-10-31] MEDS: dexameTHASONE 4 MG/ML 1ML VIAL (J1100 PER 1MG) IV SCH (08:46)
[2021-10-31] MEDS ORDERED: COMBIVENT RESPIMAT 100-20MCG INHALER 4GM INH PRN (09:05)
[2021-10-31] MEDS: MICAFUNGIN SODIUM 100 MG in D5W MINI-BAG PLUS 100 ML IV SCH (12:40)
[2021-10-31] MEDS: RAMELTEON 8 MG TAB (ROZEREM) PO SCH (20:23)
[2021-11-01 04:00] VITALS: BP_DIAS 138
[2021-11-01] MEDS: LEVOTHYROXINE 150MCG TABLET (0.15MG) PO SCH (06:09)
[2021-11-01 07:59] LABS: HEMATOCRIT 38.3 % (42.0-52.0); HEMOGLOBIN 12.6 g/dl (13.5-17.5); MEAN CORPUSCULAR HEMOGLOBIN 28.8 pg (27.0-33.0); MEAN CORPUSCULAR HGB CONC 32.9 g/dl (32.0-36.5); MEAN CORPUSCULAR VOLUME 87.6 fl (80.0-96.0); PLATELET COUNT, AUTOMATED 273 10^3/uL (150-450); RED BLOOD COUNT 4.37 10^6/uL (4.30-6.10); WHITE BLOOD COUNT 11.3 10^3/uL (4.0-10.0)
[2021-11-01] MEDS: dexameTHASONE 4 MG/ML 1ML VIAL (J1100 PER 1MG) IV SCH (08:23)
[2021-11-01] MEDS: FUROSEMIDE 40 MG TAB PO SCH (08:24)
[2021-11-01] MEDS: LEVEMIR (INSULIN DETEMIR) 1 UNITS/0.01ML SC SCH ×2 (08:24→20:43)
[2021-11-01] MEDS: TAMSULOSIN 0.4 MG CAP PO SCH (08:24)
[2021-11-01] MEDS: ENOXAPARIN 40MG/0.4ML SYRINGE (J1650 PER 10MG) SC SCH (08:24)
[2021-11-01] MEDS: PANTOPRAZOLE 40MG VIAL (C9113 PER 1) IV SCH (08:24)
[2021-11-01] MEDS: MUPIROCIN 2% OINT 22 GM TUBE TOP SCH ×2 (08:25→20:43)
[2021-11-01] MEDS: NYSTATIN CREAM 15 GM TOP SCH ×2 (08:25→20:45)
[2021-11-01 08:36] VITALS: BP 133/80
[2021-11-01 08:50] LABS: ALBUMIN 2.9 GM/DL (3.2-5.2); ALT/SGPT 56 U/L (12-78); BILIRUBIN,TOTAL 0.7 MG/DL (0.2-1.0); BLOOD UREA NITROGEN 31 MG/DL (7-18); CALCIUM LEVEL 9.7 MG/DL (8.5-10.1); CARBON DIOXIDE LEVEL 24 MEQ/L (21-32); CHLORIDE LEVEL 104 MEQ/L (98-107); CREATININE FOR GFR 0.99 MG/DL (0.70-1.30); GLOMERULAR FILTRATION RATE > 60.0 (>60); GLUCOSE, FASTING 153 MG/DL (70-100); POTASSIUM SERUM 3.5 MEQ/L (3.5-5.1); SODIUM LEVEL 138 MEQ/L (136-145); TOTAL PROTEIN 8.3 GM/DL (6.4-8.2)
[2021-11-01] MEDS: HumaLOG INSULIN (NovoLOG) PER UNIT SC SCH ×4 (09:35→20:44)
[2021-11-01] MEDS: ACETAMINOPHEN TAB 650MG DOSE (2X325MG) PO PRN ×2 (13:09→13:15)
[2021-11-01] MEDS: MICAFUNGIN SODIUM 100 MG in D5W MINI-BAG PLUS 100 ML IV SCH (13:10)
[2021-11-01 13:51] VITALS: BP 118/76
[2021-11-01 20:00] VITALS: BP 117/58
[2021-11-01] MEDS: RAMELTEON 8 MG TAB (ROZEREM) PO SCH (20:43)
[2021-11-02 04:00] VITALS: BP 121/73
[2021-11-02] MEDS: LEVOTHYROXINE 150MCG TABLET (0.15MG) PO SCH (06:33)
[2021-11-02 07:35] LABS: HEMATOCRIT 42.1 % (42.0-52.0); HEMOGLOBIN 13.1 g/dl (13.5-17.5); MEAN CORPUSCULAR HEMOGLOBIN 28.7 pg (27.0-33.0); MEAN CORPUSCULAR HGB CONC 31.1 g/dl (32.0-36.5); MEAN CORPUSCULAR VOLUME 92.3 fl (80.0-96.0); PLATELET COUNT, AUTOMATED 230 10^3/uL (150-450); RED BLOOD COUNT 4.56 10^6/uL (4.30-6.10); WHITE BLOOD COUNT 10.7 10^3/uL (4.0-10.0)
[2021-11-02 08:00] VITALS: BP 125/73
[2021-11-02 08:01] LABS: ALBUMIN 2.9 GM/DL (3.2-5.2); ALT/SGPT 57 U/L (12-78); BILIRUBIN,TOTAL 0.8 MG/DL (0.2-1.0); BLOOD UREA NITROGEN 29 MG/DL (7-18); CALCIUM LEVEL 9.2 MG/DL (8.5-10.1); CARBON DIOXIDE LEVEL 18 MEQ/L (21-32); CHLORIDE LEVEL 105 MEQ/L (98-107); CREATININE FOR GFR 0.95 MG/DL (0.70-1.30); GLOMERULAR FILTRATION RATE > 60.0 (>60); GLUCOSE, FASTING 147 MG/DL (70-100); SODIUM LEVEL 137 MEQ/L (136-145); TOTAL PROTEIN 7.6 GM/DL (6.4-8.2)
[2021-11-02] MEDS: dexameTHASONE 4 MG/ML 1ML VIAL (J1100 PER 1MG) IV SCH (08:49)
[2021-11-02] MEDS: FUROSEMIDE 40 MG TAB PO SCH (08:49)
[2021-11-02] MEDS: PANTOPRAZOLE 40MG VIAL (C9113 PER 1) IV SCH (08:49)
[2021-11-02] MEDS: TAMSULOSIN 0.4 MG CAP PO SCH (08:49)
[2021-11-02] MEDS: HumaLOG INSULIN (NovoLOG) PER UNIT SC SCH ×4 (08:50→20:45)
[2021-11-02] MEDS: LEVEMIR (INSULIN DETEMIR) 1 UNITS/0.01ML SC SCH ×2 (08:50→20:54)
[2021-11-02] MEDS: ENOXAPARIN 40MG/0.4ML SYRINGE (J1650 PER 10MG) SC SCH (08:51)
[2021-11-02] MEDS: MUPIROCIN 2% OINT 22 GM TUBE TOP SCH ×2 (08:52→20:55)
[2021-11-02] MEDS: NYSTATIN CREAM 15 GM TOP SCH ×2 (08:52→20:54)
[2021-11-02 14:00] VITALS: BP 137/85
[2021-11-02 20:00] VITALS: BP 123/63
[2021-11-02] MEDS: RAMELTEON 8 MG TAB (ROZEREM) PO SCH (20:54)
[2021-11-03 04:00] VITALS: BP 119/76
[2021-11-03] MEDS: LEVOTHYROXINE 150MCG TABLET (0.15MG) PO SCH (05:53)
[2021-11-03 06:55] LABS: HEMATOCRIT 39.7 % (42.0-52.0); HEMOGLOBIN 13.3 g/dl (13.5-17.5); MEAN CORPUSCULAR HEMOGLOBIN 29.4 pg (27.0-33.0); MEAN CORPUSCULAR HGB CONC 33.5 g/dl (32.0-36.5); MEAN CORPUSCULAR VOLUME 87.6 fl (80.0-96.0); PLATELET COUNT, AUTOMATED 316 10^3/uL (150-450); RED BLOOD COUNT 4.53 10^6/uL (4.30-6.10); WHITE BLOOD COUNT 12.7 10^3/uL (4.0-10.0)
[2021-11-03 07:19] LABS: BLOOD UREA NITROGEN 27 MG/DL (7-18); CARBON DIOXIDE LEVEL 27 MEQ/L (21-32); CHLORIDE LEVEL 101 MEQ/L (98-107); CREATININE FOR GFR 1.09 MG/DL (0.70-1.30); GLOMERULAR FILTRATION RATE > 60.0 (>60); GLUCOSE, FASTING 136 MG/DL (70-100); POTASSIUM SERUM 3.4 MEQ/L (3.5-5.1); SODIUM LEVEL 135 MEQ/L (136-145)
[2021-11-03] MEDS: PANTOPRAZOLE 40MG VIAL (C9113 PER 1) IV SCH (08:52)
[2021-11-03] MEDS: HumaLOG INSULIN (NovoLOG) PER UNIT SC SCH ×4 (08:53→20:49)
[2021-11-03] MEDS: LEVEMIR (INSULIN DETEMIR) 1 UNITS/0.01ML SC SCH ×2 (08:53→20:50)
[2021-11-03] MEDS: dexameTHASONE 4 MG/ML 1ML VIAL (J1100 PER 1MG) IV SCH (08:54)
[2021-11-03] MEDS: ENOXAPARIN 40MG/0.4ML SYRINGE (J1650 PER 10MG) SC SCH (08:54)
[2021-11-03] MEDS: TAMSULOSIN 0.4 MG CAP PO SCH (08:55)
[2021-11-03] MEDS: FUROSEMIDE 40 MG TAB PO SCH (08:55)
[2021-11-03] MEDS: NYSTATIN CREAM 15 GM TOP SCH ×2 (08:56→20:51)
[2021-11-03] MEDS: MUPIROCIN 2% OINT 22 GM TUBE TOP SCH ×2 (08:57→20:59)
[2021-11-03 14:00] VITALS: BP 117/71
[2021-11-03 20:00] VITALS: BP 127/72
[2021-11-03] MEDS: RAMELTEON 8 MG TAB (ROZEREM) PO SCH (21:00)
[2021-11-04 06:00] VITALS: BP_SYST 127; BP_SYST 146; BP_DIAS 65; BP_DIAS 78
[2021-11-04] MEDS: LEVOTHYROXINE 150MCG TABLET (0.15MG) PO SCH (06:35)
[2021-11-04 07:05] LABS: HEMATOCRIT 39.5 % (42.0-52.0); HEMOGLOBIN 13.1 g/dl (13.5-17.5); MEAN CORPUSCULAR HEMOGLOBIN 28.8 pg (27.0-33.0); MEAN CORPUSCULAR HGB CONC 33.2 g/dl (32.0-36.5); MEAN CORPUSCULAR VOLUME 86.8 fl (80.0-96.0); PLATELET COUNT, AUTOMATED 327 10^3/uL (150-450); RED BLOOD COUNT 4.55 10^6/uL (4.30-6.10); WHITE BLOOD COUNT 13.2 10^3/uL (4.0-10.0)
[2021-11-04 07:36] LABS: BLOOD UREA NITROGEN 26 MG/DL (7-18); CALCIUM LEVEL 10.1 MG/DL (8.5-10.1); CARBON DIOXIDE LEVEL 25 MEQ/L (21-32); CHLORIDE LEVEL 99 MEQ/L (98-107); CREATININE FOR GFR 1.02 MG/DL (0.70-1.30); GLOMERULAR FILTRATION RATE > 60.0 (>60); GLUCOSE, FASTING 119 MG/DL (70-100); POTASSIUM SERUM 3.2 MEQ/L (3.5-5.1); SODIUM LEVEL 135 MEQ/L (136-145)
[2021-11-04] MEDS ORDERED: POTASSIUM CHLORIDE 10MEQ SR TABLET PO ONE (07:45)
[2021-11-04] MEDS: TAMSULOSIN 0.4 MG CAP PO SCH (08:18)
[2021-11-04] MEDS: PANTOPRAZOLE 40MG VIAL (C9113 PER 1) IV SCH (08:18)
[2021-11-04] MEDS: HumaLOG INSULIN (NovoLOG) PER UNIT SC SCH ×4 (08:19→21:00)
[2021-11-04] MEDS: LEVEMIR (INSULIN DETEMIR) 1 UNITS/0.01ML SC SCH ×2 (08:19→21:41)
[2021-11-04] MEDS: MUPIROCIN 2% OINT 22 GM TUBE TOP SCH ×2 (08:20→21:43)
[2021-11-04] MEDS: ENOXAPARIN 40MG/0.4ML SYRINGE (J1650 PER 10MG) SC SCH (08:21)
[2021-11-04] MEDS: FUROSEMIDE 40 MG TAB PO SCH (08:21)
[2021-11-04] MEDS: NYSTATIN CREAM 15 GM TOP SCH ×2 (08:22→21:44)
[2021-11-04] MEDS ORDERED: dexameTHASONE 4 MG/ML 1ML VIAL (J1100 PER 1MG) IV SCH (09:00)
[2021-11-04 11:10] VITALS: BP 129/80
[2021-11-04 14:00] VITALS: BP 135/96
[2021-11-04] MEDS: SERTRALINE HCL 50 MG TAB PO SCH ×2 (18:16→18:18)
[2021-11-04 21:00] VITALS: BP 131/91
[2021-11-04] MEDS: RAMELTEON 8 MG TAB (ROZEREM) PO SCH (21:41)
[2021-11-05] MEDS: LEVOTHYROXINE 150MCG TABLET (0.15MG) PO SCH (05:59)
[2021-11-05 07:09] LABS: HEMATOCRIT 38.6 % (42.0-52.0); HEMOGLOBIN 13.2 g/dl (13.5-17.5); MEAN CORPUSCULAR HEMOGLOBIN 29.5 pg (27.0-33.0); MEAN CORPUSCULAR HGB CONC 34.2 g/dl (32.0-36.5); MEAN CORPUSCULAR VOLUME 86.4 fl (80.0-96.0); PLATELET COUNT, AUTOMATED 289 10^3/uL (150-450); RED BLOOD COUNT 4.47 10^6/uL (4.30-6.10); WHITE BLOOD COUNT 10.5 10^3/uL (4.0-10.0)
[2021-11-05 07:41] LABS: BLOOD UREA NITROGEN 23 MG/DL (7-18); CALCIUM LEVEL 9.2 MG/DL (8.5-10.1); CARBON DIOXIDE LEVEL 23 MEQ/L (21-32); CHLORIDE LEVEL 102 MEQ/L (98-107); CREATININE FOR GFR 1.03 MG/DL (0.70-1.30); GLOMERULAR FILTRATION RATE > 60.0 (>60); GLUCOSE, FASTING 148 MG/DL (70-100); POTASSIUM SERUM 3.6 MEQ/L (3.5-5.1); SODIUM LEVEL 137 MEQ/L (136-145)
[2021-11-05] MEDS: PANTOPRAZOLE 40MG VIAL (C9113 PER 1) IV SCH ×2 (09:00→09:33)
[2021-11-05] MEDS: HumaLOG INSULIN (NovoLOG) PER UNIT SC SCH ×4 (09:33→21:00)
[2021-11-05] MEDS: LEVEMIR (INSULIN DETEMIR) 1 UNITS/0.01ML SC SCH ×2 (09:33→21:19)
[2021-11-05] MEDS: predniSONE 20 MG TAB PO SCH (09:34)
[2021-11-05] MEDS: FUROSEMIDE 40 MG TAB PO SCH (09:34)
[2021-11-05] MEDS: TAMSULOSIN 0.4 MG CAP PO SCH (09:34)
[2021-11-05] MEDS: ENOXAPARIN 40MG/0.4ML SYRINGE (J1650 PER 10MG) SC SCH (09:34)
[2021-11-05] MEDS: SERTRALINE HCL 50 MG TAB PO SCH (09:34)
[2021-11-05] MEDS: NYSTATIN CREAM 15 GM TOP SCH ×2 (09:35→21:00)
[2021-11-05] MEDS: MUPIROCIN 2% OINT 22 GM TUBE TOP SCH ×2 (09:35→21:00)
[2021-11-05] MEDS: ACETAMINOPHEN TAB 650MG DOSE (2X325MG) PO PRN ×2 (13:07→21:20)
[2021-11-05 14:00] VITALS: BP 130/89
[2021-11-05] MEDS: RAMELTEON 8 MG TAB (ROZEREM) PO SCH (21:19)
[2021-11-06 06:00] VITALS: BP 149/98
[2021-11-06] MEDS: LEVOTHYROXINE 150MCG TABLET (0.15MG) PO SCH (06:10)
[2021-11-06 06:41] LABS: HEMATOCRIT 37.4 % (42.0-52.0); HEMOGLOBIN 12.8 g/dl (13.5-17.5); MEAN CORPUSCULAR HEMOGLOBIN 29.2 pg (27.0-33.0); MEAN CORPUSCULAR HGB CONC 34.2 g/dl (32.0-36.5); MEAN CORPUSCULAR VOLUME 85.2 fl (80.0-96.0); PLATELET COUNT, AUTOMATED 303 10^3/uL (150-450); RED BLOOD COUNT 4.39 10^6/uL (4.30-6.10); WHITE BLOOD COUNT 11.1 10^3/uL (4.0-10.0)
[2021-11-06 07:10] LABS: BLOOD UREA NITROGEN 19 MG/DL (7-18); CALCIUM LEVEL 9.4 MG/DL (8.5-10.1); CARBON DIOXIDE LEVEL 25 MEQ/L (21-32); CHLORIDE LEVEL 101 MEQ/L (98-107); CREATININE FOR GFR 0.89 MG/DL (0.70-1.30); GLOMERULAR FILTRATION RATE > 60.0 (>60); GLUCOSE, FASTING 124 MG/DL (70-100); POTASSIUM SERUM 3.6 MEQ/L (3.5-5.1); SODIUM LEVEL 134 MEQ/L (136-145)
[2021-11-06 08:05] VITALS: BP 136/88
[2021-11-06] MEDS ORDERED: PANTOPRAZOLE 40MG TAB (PROTONIX) PO SCH (09:00)
[2021-11-06] MEDS: LEVEMIR (INSULIN DETEMIR) 1 UNITS/0.01ML SC SCH (09:00)
[2021-11-06] MEDS: NYSTATIN CREAM 15 GM TOP SCH (09:00)
[2021-11-06] MEDS: HumaLOG INSULIN (NovoLOG) PER UNIT SC SCH ×3 (09:23→17:30)
[2021-11-06] MEDS: predniSONE 20 MG TAB PO SCH (09:25)
[2021-11-06] MEDS: FUROSEMIDE 40 MG TAB PO SCH (09:27)
[2021-11-06] MEDS: TAMSULOSIN 0.4 MG CAP PO SCH (09:28)
[2021-11-06] MEDS: ENOXAPARIN 40MG/0.4ML SYRINGE (J1650 PER 10MG) SC SCH (09:32)
[2021-11-06] MEDS: MUPIROCIN 2% OINT 22 GM TUBE TOP SCH (09:34)
[2021-11-06] MEDS ORDERED: ACET1TAB55 PO (12:24)
[2021-11-06] MEDS ORDERED: FURO40TA2 PO (12:24)
[2021-11-06] MEDS ORDERED: NYST10CR TOP (12:24)
[2021-11-06] MEDS ORDERED: RAME8TAB2 PO (12:24)
[2021-11-06] MEDS ORDERED: PANT40TA29 PO (12:24)
[2021-11-06] MEDS ORDERED: BISA10SU PR (12:24)
[2021-11-06] MEDS ORDERED: INSUDET SC ×2 (12:24)
[2021-11-06] MEDS ORDERED: PERCOCET PO ×2 (12:24)
[2021-11-06] MEDS ORDERED: MUPI2OI TOP (12:24)
[2021-11-06] MEDS ORDERED: INSUHUMDS SC ×2 (12:24)
[2021-11-06] MEDS ORDERED: COMBAER6 INH (12:24)
[2021-11-06] MEDS ORDERED: FLOM0.4C39 PO (12:24)
[2021-11-06] MEDS ORDERED: PRED20TA PO (12:34)
[2021-11-06] MEDS: ACETAMINOPHEN TAB 650MG DOSE (2X325MG) PO PRN (12:47)
[2021-11-06 14:49] VITALS: BP 144/90
[2021-11-12] MEDS ORDERED: predniSONE 5 MG TAB PO SCH (09:00)
[2021-11-19] MEDS ORDERED: predniSONE 10 MG TAB PO SCH (09:00)
[2021-11-26] MEDS ORDERED: predniSONE 5 MG TAB PO SCH (09:00)
== END 2021-11-06 18:15 | DRG 951 ==
LOC: M ICU 13:14 → M 4MAIN 10-31 23:23 → M MSPAV 11-04 10:45
PROVIDERS: ADMIT Internal Medicine Pulmonary Disease; ATTEND Internal Medicine
PROC: XW033E5 Introduction of Remdesivir Anti-infective into Peripheral Vein, Percutaneous Approach, New Technology Group 5 (ICD-10-PCS; 2021-10-07)
PROC: 02HV33Z Insertion of Infusion Device into Superior Vena Cava, Percutaneous Approach (ICD-10-PCS; 2021-10-07)
PROC: 3E0333Z Introduction of Anti-inflammatory into Peripheral Vein, Percutaneous Approach (ICD-10-PCS; 2021-10-07)
PROC: 5A1955Z Respiratory Ventilation, Greater than 96 Consecutive Hours (ICD-10-PCS; 2021-10-07)
PROC: 02HV33Z Insertion of Infusion Device into Superior Vena Cava, Percutaneous Approach (ICD-10-PCS; 2021-10-23)
PROC: 0KBG0ZZ Excision of Left Trunk Muscle, Open Approach (ICD-10-PCS; principal; 2021-10-30)
DX: U07.1 COVID-19 (principal); J12.82 Pneumonia due to coronavirus disease 2019; G72.81 Critical illness myopathy; N17.9 Acute kidney failure, unspecified; L89.150 Pressure ulcer of sacral region, unstageable; J96.01 Acute respiratory failure with hypoxia; Z68.42 Body mass index [BMI] 45.0-49.9, adult; R13.10 Dysphagia, unspecified; J96.02 Acute respiratory failure with hypercapnia; L89.152 Pressure ulcer of sacral region, stage 2; E11.42 Type 2 diabetes mellitus with diabetic polyneuropathy; L89.320 Pressure ulcer of left buttock, unstageable; L89.322 Pressure ulcer of left buttock, stage 2; E11.65 Type 2 diabetes mellitus with hyperglycemia; E66.2 Morbid (severe) obesity with alveolar hypoventilation; E87.70 Fluid overload, unspecified; E03.9 Hypothyroidism, unspecified; D64.9 Anemia, unspecified; I10 Essential (primary) hypertension; M47.26 Other spondylosis with radiculopathy, lumbar region; F17.290 Nicotine dependence, other tobacco product, uncomplicated; F32.A Depression, unspecified; R33.9 Retention of urine, unspecified